=== PATIENT | male | born 1970 | race Caucasian/White ===

== ENCOUNTER → 2016-06-07 | Outpatient (REF) | payer OTHER ==
[~2016-06-07] MED LIST: AMIT50TA PO; ASPI81TA85 PO; CARV6.25 PO; GABA-283 PO; HYDROCODONE PO; LISI40TAB PO; NORC10TA2 PO; OXYC30TA72 PO; OXYC30TA84 PO; PRED20TA PO; PREG50CA PO; ROXI1TAB2 PO; SENO8.6T10 PO; SPIR50TA2 PO; TRAM50TA2 PO; ZANA4CAP PO
== END ==
LOC: M LAB REF 16:39
PROVIDERS: ATTEND Physician Assistant
DX: J06.9 Acute upper respiratory infection, unspecified (principal)

== ENCOUNTER 2016-09-15 18:33 | Emergency (ER) | payer OTHER ==
[~2016-09-15] VITALS: Ht 185.4 cm; Wt 148.2 kg
[2016-09-15] MEDS ORDERED: LISI40TAB PO (18:48)
[2016-09-15] MEDS ORDERED: MORPHINE 10 MG/ML 1ML VIAL IM ONE (20:30)
[2016-09-15] MEDS ORDERED: fentaNYL 100 MCG/2 ML INJECTION (J3010) IV ONE (22:15)
[2016-09-15] MEDS ORDERED: traMADol 50 MG TAB PO ONE (22:30)
--- NOTE | 2016-09-15 22:40 | REPUSA ---
Clinical history: Pain. Findings: 5 views of the right knee were obtained. The osseous structures are intact, without evidenc e of fracture or dislocation. The soft tissues are within normal limits. Impression: No acute findings.
--- NOTE | 2016-09-15 22:40 | REPUSA ---
Clinical history: Pain. Findings: 4 views of the right tibia and fibula were obtained. The osseous structures are intact, wit hout evidence of fracture or dislocation. The soft tissues are within normal limits. Impression: No acute findings.
[2016-09-15] MEDS ORDERED: traMADol 50 MG TAB (BULK 4 TAB ED) PO ONE (23:00)
[2016-09-15] MEDS ORDERED: SPIRONOLACTONE 50 MG TAB PO ONE (23:15)
[2016-09-15] MEDS ORDERED: CARVedilol 12.5 MG TAB PO ONE (23:15)
[2016-09-15] MEDS ORDERED: LABETALOL HCL 100 MG/20 ML VIAL IV STA (23:17)
[2016-09-16] VITALS: BP 164/98
[2016-09-16] MEDS ORDERED: TRAM50TA2 PO (00:11)
== END 2016-09-16 00:15 | disposition home or self-care (01) ==
LOC: M ED 19:35
DX: M23.91 Unspecified internal derangement of right knee (principal); I10 Essential (primary) hypertension; Z79.899 Other long term (current) drug therapy; Z88.0 Allergy status to penicillin; Z91.030 Bee allergy status
CPT/HCPCS: 73564; 73590; 96372; 96374; 96375; 99284; J3010

== ENCOUNTER 2016-11-18 10:45 | Emergency (ER) | payer OTHER ==
[~2016-11-18] VITALS: Ht 185.4 cm; Wt 165.4 kg
[~2016-11-18 10:45] MED LIST changes: -NORC10TA2 PO; +NORC10TA21 PO
[2016-11-18] MEDS ORDERED: AMLO10TA2 PO ×2 (10:58→12:42)
[2016-11-18] MEDS ORDERED: SPIR25TA2 PO ×2 (12:08→12:42)
[2016-11-18 12:10] LABS: MEAN CORPUSCULAR HEMOGLOBIN 29.6 pg (27.0-33.0); MEAN CORPUSCULAR VOLUME 84.7 fl (80.0-96.0); RED CELL DISTRIBUTION WIDTH 14.2 % (11.5-14.5); WHITE BLOOD COUNT 6.9 K/mm3 (4.0-10.0)
[2016-11-18 12:26] LABS: ANION GAP 9 MEQ/L (8-16); BLOOD UREA NITROGEN 17 MG/DL (7-18); CALCIUM LEVEL 8.5 MG/DL (8.5-10.1); CARBON DIOXIDE LEVEL 30 MEQ/L (21-32); CHLORIDE LEVEL 104 MEQ/L (98-107); GLOMERULAR FILTRATION RATE > 60.0 (>60); GLUCOSE, FASTING 173 MG/DL (70-105); MAGNESIUM LEVEL 2.3 MG/DL (1.8-2.4); POTASSIUM SERUM 3.1 MEQ/L (3.5-5.1); SODIUM LEVEL 143 MEQ/L (136-145)
[2016-11-18 12:27] LABS: EOSINOPHILS 1 % (0-5)
[2016-11-18] MEDS ORDERED: POTASSIUM CHLORIDE 10 MEQ SR TABLET PO ONE (12:45)
[2016-11-18 12:49] VITALS: BP 173/86
--- NOTE | 2016-11-19 08:12 | ECGEPIP ---
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
== END 2016-11-18 13:06 | disposition home or self-care (01) ==
LOC: M ED 10:45
DX: I10 Essential (primary) hypertension (principal); F43.12 Post-traumatic stress disorder, chronic; J45.909 Unspecified asthma, uncomplicated

== ENCOUNTER → 2017-03-25 | Outpatient (CLI) | payer OTHER ==
[~2017-03-25] MED LIST changes: +AMLO10TA2 PO; +SPIR25TA2 PO
--- NOTE | 2017-03-25 10:02 | REP ---
Clinical: Trauma. Technique: Frontal view of the chest with multiple views of the of the right hemithorax. Findings: Frontal view of the chest demonstrates no acute cardiopulmonary process. Multiple views of the right hemithorax demonstrates no obvious acute rib fracture or pathology. Impression: Normal right rib series Signed by Ken Johnson MD 03/25/2017 09:53 A
== END ==
LOC: M WUC 09:29
PROVIDERS: ATTEND Physician Assistant
DX: S20.211A Contusion of right front wall of thorax, initial encounter (principal); X58.XXXA Exposure to other specified factors, initial encounter; Y92.89 Other specified places as the place of occurrence of the external cause; Y93.89 Activity, other specified; Y99.8 Other external cause status

== ENCOUNTER → 2017-05-03 | Outpatient (CLI) | payer OTHER | LOC: M WUC 18:37 | DX: M25.562 Pain in left knee (principal); M79.662 Pain in left lower leg; M17.12 Unilateral primary osteoarthritis, left knee; M25.762 Osteophyte, left knee | CPT/HCPCS: 73564 ==

== ENCOUNTER → 2017-05-29 | Outpatient (CLI) | payer OTHER | LOC: M RAD 17:03 | DX: S83.412A Sprain of medial collateral ligament of left knee, initial encounter (principal); M71.22 Synovial cyst of popliteal space [Baker], left knee; X58.XXXA Exposure to other specified factors, initial encounter; Y92.9 Unspecified place or not applicable | CPT/HCPCS: 73721 ==

== ENCOUNTER 2017-11-25 14:56 | Emergency (ER) | payer OTHER ==
[2017-11-25] MEDS: NS 1,000 ML IV (15:22)
[2017-11-25] MEDS: KETOROLAC 30 MG/ML VIAL (J1885) IV (15:22)
[2017-11-25 15:27] LABS: BASO # 0.1 10^3/uL (0.0-0.2); BASO % 0.5 % (0.0-1.0); EOS # 0.2 10^3/uL (0.0-0.50); EOS % 1.9 % (0.0-3.0); HEMATOCRIT 51.5 % (42.0-52.0); HEMOGLOBIN 17.8 g/dl (13.5-17.5); IMMATURE GRANULOCYTE % 0.5 % (0-3.0); LYMPH # 2.3 10^3/uL (1.5-4.5); MEAN CORPUSCULAR HEMOGLOBIN 28.5 pg (27.0-33.0); MEAN CORPUSCULAR HGB CONC 34.6 g/dl (32.0-36.5); MEAN CORPUSCULAR VOLUME 82.5 fl (80.0-96.0); MONO # 0.8 10^3/uL (0.0-0.8); MONO % 6.9 % (0.0-5.0); NEUTROPHILS # 7.5 10^3/uL (1.8-7.7); NEUTROPHILS % 69.2 % (36.0-66.0); PLATELET COUNT, AUTOMATED 173 10^3/uL (150-450); RED BLOOD COUNT 6.24 10^6/uL (4.30-6.10); RED CELL DISTRIBUTION WIDTH 14.2 % (11.5-14.5); WHITE BLOOD COUNT 10.8 10^3/uL (4.0-10.0)
[2017-11-25] MEDS: TAMSULOSIN 0.4 MG CAP PO (15:32)
[2017-11-25] MEDS: MORPHINE 4 MG/ML 1ML VIAL/SYRINGE (J2270) IV (15:33)
[2017-11-25 15:54] LABS: ALBUMIN 3.8 GM/DL (3.2-5.2); ALBUMIN/GLOBULIN RATIO 1.06 (1.00-1.93); ALKALINE PHOSPHATASE 97 U/L (45-117); ALT/SGPT 68 U/L (12-78); ANION GAP 7 MEQ/L (8-16); AST/SGOT 65 U/L (7-37); BILIRUBIN,TOTAL 1.1 MG/DL (0.2-1.0); BLOOD UREA NITROGEN 14 MG/DL (7-18); CALCIUM LEVEL 8.8 MG/DL (8.5-10.1); CARBON DIOXIDE LEVEL 33 MEQ/L (21-32); CHLORIDE LEVEL 103 MEQ/L (98-107); CREATININE FOR GFR 1.35 MG/DL (0.70-1.30); GLOMERULAR FILTRATION RATE > 60.0 (>60); GLUCOSE, FASTING 198 MG/DL (70-100); POTASSIUM SERUM 3.6 MEQ/L (3.5-5.1); SODIUM LEVEL 143 MEQ/L (136-145); TOTAL PROTEIN 7.4 GM/DL (6.4-8.2)
[2017-11-25] MEDS: fentaNYL 100 MCG/2 ML INJECTION (J3010) IV (15:58)
[2017-11-25] MEDS ORDERED: NS 1,000 ML IV (16:30)
[2017-11-25 16:54] LABS: KETONE, URINE AUTO RFX TRACE mg/dL (NEGATIVE); LEUKOCYTE ESTERASE UR AUTO RFX NEGATIVE (NEGATIVE); MUCUS, URINE RFX LARGE (NEGATIVE); NITRITE, URINE AUTO RFX NEGATIVE (NEGATIVE); RBC, URINE AUTO RFX 1 /HPF (0-3); SPECIFIC GRAVITY UR AUTO RFX 1.027 (1.002-1.035); SQUAM EPITHELIAL CELL UR AURFX 0 /HPF (0-6); WBC, URINE AUTO RFX 3 /HPF (0-3)
== END 2017-11-25 16:48 | disposition home or self-care (01) ==
LOC: M ED 14:56
DX: N20.1 Calculus of ureter (principal); I10 Essential (primary) hypertension; Z87.442 Personal history of urinary calculi; G47.33 Obstructive sleep apnea (adult) (pediatric); Z87.820 Personal history of traumatic brain injury; Z88.0 Allergy status to penicillin; Z91.030 Bee allergy status; Z79.899 Other long term (current) drug therapy
CPT/HCPCS: J2270

== ENCOUNTER 2017-11-28 06:08 | Emergency (ER) | payer OTHER ==
[2017-11-28] MEDS: MORPHINE 4 MG/ML 1ML VIAL/SYRINGE (J2270) IV (06:30)
[2017-11-28 06:52] LABS: BASO # 0.1 10^3/uL (0.0-0.2); BASO % 0.6 % (0.0-1.0); EOS # 0.1 10^3/uL (0.0-0.50); EOS % 1.2 % (0.0-3.0); HEMATOCRIT 52.8 % (42.0-52.0); HEMOGLOBIN 18.7 g/dl (13.5-17.5); IMMATURE GRANULOCYTE % 0.2 % (0-3.0); LYMPH # 1.9 10^3/uL (1.5-4.5); LYMPH % 23.7 % (24.0-44.0); MEAN CORPUSCULAR HEMOGLOBIN 28.6 pg (27.0-33.0); MEAN CORPUSCULAR HGB CONC 35.4 g/dl (32.0-36.5); MEAN CORPUSCULAR VOLUME 80.9 fl (80.0-96.0); MONO # 0.5 10^3/uL (0.0-0.8); MONO % 5.9 % (0.0-5.0); NEUTROPHILS # 5.6 10^3/uL (1.8-7.7); NEUTROPHILS % 68.4 % (36.0-66.0); PLATELET COUNT, AUTOMATED 206 10^3/uL (150-450); RED BLOOD COUNT 6.53 10^6/uL (4.30-6.10); RED CELL DISTRIBUTION WIDTH 14.8 % (11.5-14.5); WHITE BLOOD COUNT 8.1 10^3/uL (4.0-10.0)
[2017-11-28] MEDS: ONDANSETRON 4MG/2ML VIAL (J2405) IV (06:59)
[2017-11-28] MEDS: NS 1,000 ML IV ×2 (06:59→09:30)
[2017-11-28] MEDS: amLODIPine 5 MG TAB PO (08:03)
[2017-11-28] MEDS: fentaNYL 100 MCG/2 ML INJECTION (J3010) IV ×2 (08:04→09:44)
[2017-11-28] MEDS ORDERED: ISOVUE-370 76% 100ML VIAL (Q9967) As Ordered (08:05)
[2017-11-28 08:24] LABS: ANION GAP 9 MEQ/L (8-16); BLOOD UREA NITROGEN 11 MG/DL (7-18); CALCIUM LEVEL 8.1 MG/DL (8.5-10.1); CARBON DIOXIDE LEVEL 27 MEQ/L (21-32); CHLORIDE LEVEL 105 MEQ/L (98-107); CK-MB VALUE MASS < 1.0 NG/ML (<3.6); CPK CREATINE PHOSPHOKINASE 143 U/L (39-308); CREATININE FOR GFR 1.02 MG/DL (0.70-1.30); GLOMERULAR FILTRATION RATE > 60.0 (>60); GLUCOSE, FASTING 187 MG/DL (70-100); MB/CK RELATIVE INDEX 0.69 (< OR =4); SODIUM LEVEL 141 MEQ/L (136-145); TROPONIN I 0.03 NG/ML (< 0.10)
[2017-11-28 08:28] LABS: POTASSIUM SERUM 2.5 MEQ/L (3.5-5.1)
[2017-11-28] MEDS: POTASSIUM CHLORIDE 10 MEQ SR TABLET PO (09:41)
[2017-11-28] MEDS: KCL 10MEQ/100ML SWI (KRUN) 10 MEQ in APPROPRIATE DILUENT 1 EA IV ×2 (09:42→11:06)
[2017-11-28 10:48] LABS: APPEARANCE, URINE CLEAR (CLEAR); BACTERIA, URINE AUTO NEGATIVE (NEGATIVE); BILIRUBIN, URINE AUTO NEGATIVE (NEGATIVE); BLOOD, URINE BLOOD NEGATIVE (NEGATIVE); COLOR, URINE YELLOW (YELLOW); GLUCOSE, URINE (UA) AUTO NEGATIVE (NEGATIVE); KETONE, URINE AUTO TRACE mg/dL (NEGATIVE); LEUKOCYTE ESTERASE, URINE AUTO NEGATIVE (NEGATIVE); NITRITE, URINE AUTO NEGATIVE (NEGATIVE); PROTEIN, URINE AUTO NEGATIVE (NEGATIVE); RBC, URINE AUTO 2 /HPF (0-3); SPECIFIC GRAVITY URINE AUTO 1.034 (1.002-1.035); SQUAMOUS EPITHELIAL CELL UR AU 0 /HPF (0-6); UROBILINOGEN, URINE AUTO 0.2 mg/dL (0.0-2.0); WBC, URINE AUTO 2 /HPF (0-3)
[2017-11-28] MEDS: diazePAM 10 MG TAB PO (12:58)
[2017-11-28] MEDS: HYDROMORPHONE HCL 0.5 MG/ 0.5 ML SYRINGE (J1170 PER 1) IV (13:00)
== END 2017-11-28 14:28 | disposition home or self-care (01) ==
LOC: M ED 06:08
DX: M54.5 Low back pain (principal); E87.6 Hypokalemia; K59.00 Constipation, unspecified; I10 Essential (primary) hypertension; E78.5 Hyperlipidemia, unspecified; Z79.899 Other long term (current) drug therapy; Z79.84 Long term (current) use of oral hypoglycemic drugs; Z88.0 Allergy status to penicillin; Z91.030 Bee allergy status; Z87.891 Personal history of nicotine dependence
CPT/HCPCS: J2270

== ENCOUNTER → 2017-12-19 | Outpatient (REF) | payer OTHER ==
[2017-12-19 19:04] LABS: APPEARANCE, URINE HAZY (CLEAR); BACTERIA, URINE AUTO NEGATIVE (NEGATIVE); BILIRUBIN, URINE AUTO NEGATIVE (NEGATIVE); BLOOD, URINE BLOOD NEGATIVE (NEGATIVE); CALCIUM OXALATE CRYSTALS SMALL; COLOR, URINE YELLOW (YELLOW); GLUCOSE, URINE (UA) AUTO NEGATIVE (NEGATIVE); KETONE, URINE AUTO NEGATIVE (NEGATIVE); LEUKOCYTE ESTERASE, URINE AUTO NEGATIVE (NEGATIVE); MUCUS, URINE SMALL (NEGATIVE); NITRITE, URINE AUTO NEGATIVE (NEGATIVE); PROTEIN, URINE AUTO NEGATIVE (NEGATIVE); RBC, URINE AUTO 0 /HPF (0-3); SPECIFIC GRAVITY URINE AUTO 1.018 (1.002-1.035); SQUAMOUS EPITHELIAL CELL UR AU 0 /HPF (0-6); WBC, URINE AUTO 0 /HPF (0-3)
== END ==
LOC: M SMT 17:22
DX: R35.0 Frequency of micturition (principal)

== ENCOUNTER 2017-12-20 15:52 | Emergency (ER) | payer OTHER ==
[2017-12-20 16:52] LABS: BASO % 0.4 % (0.0-1.0); EOS # 0.2 10^3/uL (0.0-0.50); EOS % 2.4 % (0.0-3.0); HEMATOCRIT 48.1 % (42.0-52.0); HEMOGLOBIN 16.3 g/dl (13.5-17.5); IMMATURE GRANULOCYTE % 0.1 % (0-3.0); LYMPH # 1.8 10^3/uL (1.5-4.5); MEAN CORPUSCULAR HEMOGLOBIN 28.5 pg (27.0-33.0); MEAN CORPUSCULAR HGB CONC 33.9 g/dl (32.0-36.5); MEAN CORPUSCULAR VOLUME 84.2 fl (80.0-96.0); MONO # 0.5 10^3/uL (0.0-0.8); MONO % 6.7 % (0.0-5.0); NEUTROPHILS % 66.4 % (36.0-66.0); PLATELET COUNT, AUTOMATED 166 10^3/uL (150-450); RED BLOOD COUNT 5.71 10^6/uL (4.30-6.10); RED CELL DISTRIBUTION WIDTH 14.1 % (11.5-14.5); WHITE BLOOD COUNT 7.6 10^3/uL (4.0-10.0)
[2017-12-20 17:12] LABS: ANION GAP 8 MEQ/L (8-16); BLOOD UREA NITROGEN 18 MG/DL (7-18); CALCIUM LEVEL 8.8 MG/DL (8.5-10.1); CARBON DIOXIDE LEVEL 31 MEQ/L (21-32); CHLORIDE LEVEL 102 MEQ/L (98-107); CPK CREATINE PHOSPHOKINASE 180 U/L (39-308); CREATININE FOR GFR 1.04 MG/DL (0.70-1.30); GLOMERULAR FILTRATION RATE > 60.0 (>60); GLUCOSE, FASTING 120 MG/DL (70-100); MB/CK RELATIVE INDEX 1.22 (< OR =4); POTASSIUM SERUM 3.2 MEQ/L (3.5-5.1); SODIUM LEVEL 141 MEQ/L (136-145); TROPONIN I 0.03 NG/ML (< 0.10)
[2017-12-20 17:15] LABS: INR 1.06; PROTHROMBIN TIME 13.9 SECONDS (12.1-14.4)
[2017-12-20 17:16] LABS: PARTIAL THROMBOPLASTIN TIME 28.1 SECONDS (25.4-37.6)
[2017-12-20] MEDS: KETOROLAC 30 MG/ML VIAL (J1885) IV (17:23)
[2017-12-20] MEDS: ASPIRIN 325 MG TAB PO (17:23)
[2017-12-20] MEDS ORDERED: ISOVUE-370 76% 100ML VIAL (Q9967) As Ordered (17:39)
[2017-12-20] MEDS: POTASSIUM CHLORIDE 10 MEQ SR TABLET PO (18:09)
[2017-12-20] MEDS: MORPHINE 10 MG/ML 1ML VIAL (J2270) IV (19:09)
[2017-12-20 21:44] LABS: CPK CREATINE PHOSPHOKINASE 164 U/L (39-308); MB/CK RELATIVE INDEX 0.91 (< OR =4); TROPONIN I 0.03 NG/ML (< 0.10)
== END 2017-12-20 22:44 | disposition home or self-care (01) ==
LOC: M ED 15:52
DX: R07.89 Other chest pain (principal); R06.02 Shortness of breath; E11.9 Type 2 diabetes mellitus without complications; I10 Essential (primary) hypertension; N28.1 Cyst of kidney, acquired; Z87.442 Personal history of urinary calculi; Z79.899 Other long term (current) drug therapy; Z79.84 Long term (current) use of oral hypoglycemic drugs; Z88.0 Allergy status to penicillin; Z91.030 Bee allergy status; F17.210 Nicotine dependence, cigarettes, uncomplicated
CPT/HCPCS: Q9967

== ENCOUNTER → 2017-12-20 | Outpatient (CLI) | payer OTHER ==
[2017-12-20 12:44] LABS: HEMATOCRIT 46.9 % (42.0-52.0); HEMOGLOBIN 16.4 g/dl (13.5-17.5); MEAN CORPUSCULAR HEMOGLOBIN 28.5 pg (27.0-33.0); MEAN CORPUSCULAR VOLUME 81.6 fl (80.0-96.0); PLATELET COUNT, AUTOMATED 157 10^3/uL (150-450); RED BLOOD COUNT 5.75 10^6/uL (4.30-6.10); RED CELL DISTRIBUTION WIDTH 13.8 % (11.5-14.5); WHITE BLOOD COUNT 6.9 10^3/uL (4.0-10.0)
[2017-12-20 13:49] LABS: ANION GAP 6 MEQ/L (8-16); BLOOD UREA NITROGEN 17 MG/DL (7-18); CALCIUM LEVEL 8.6 MG/DL (8.5-10.1); CARBON DIOXIDE LEVEL 31 MEQ/L (21-32); CHLORIDE LEVEL 102 MEQ/L (98-107); CREATININE FOR GFR 0.96 MG/DL (0.70-1.30); GLOMERULAR FILTRATION RATE > 60.0 (>60); GLUCOSE, FASTING 164 MG/DL (70-100); POTASSIUM SERUM 3.3 MEQ/L (3.5-5.1); SODIUM LEVEL 139 MEQ/L (136-145)
[2017-12-23 15:36] LABS: METANEPHRINE PLASMA 59 pg/mL (0-62); NORMETANEPHRINE PLASMA 182 pg/mL (0-145)
[2017-12-23 15:36] LABS: ADRENOCORTICOTROPHIC HORMONE 18.8 pg/mL (7.2-63.3)
[2017-12-24 11:11] LABS: ALDOS/RENIN RATIO 28.8 (0.0-30.0); ALDOSTERONE 18.7 ng/dL (0.0-30.0)
== END ==
LOC: M WUC 11:17
DX: D35.02 Benign neoplasm of left adrenal gland (principal)

== ENCOUNTER → 2017-12-24 | Outpatient (REF) | payer OTHER | LOC: M LAB 12:18 | DX: D35.02 Benign neoplasm of left adrenal gland (principal) ==

== ENCOUNTER → 2018-09-27 | Outpatient (CLI) | payer OTHER ==
[~2018-09-27] MED LIST changes: -AMLO10TA2 PO; +AMLO10TA5 PO; +CARV25TA; +FLOM0.4C39 PO; -GABA-283 PO; +GABA-845 PO; +ISOS30TA4; +KEFL500C17 PO; +LISI40TA PO; +LISI40TA52 PO; -LISI40TAB PO; +METF500T4; +NITR0.4S14; -NORC10TA21 PO; +NORC1TAB5 PO; +PERC5TAB12 PO; +SPIR-10 PO; -SPIR25TA2 PO; -SPIR50TA2 PO; +SPIR50TA4 PO; +TRAM50TA2; +VALI5TAB PO
--- NOTE | 2018-09-27 14:05 | REP ---
MRI brain without contrast: History: Personal history of TIA. Comparison CT study of the brain is reviewed from 08/27/2017. Technique: Axial and sagittal imaging planes are utilized for T1 and T2-weighted scans. Sequences include spin-echo, fast spin echo, FLAIR, and diffusion weighted sequences. MRI findings: No bony calvarial lesion is seen. Craniocervical junction and upper cervical cord are normal in appearance. There is no MR evidence of significant paranasal sinus disease. No intraorbital lesion is seen. The deep facial and skull base soft tissues are unremarkable and symmetric. Diffusion weighted scans show no evidence to suggest acute ischemia. There is no evidence of intracranial hemorrhage. Lateral, third, and fourth ventricles are normal in size and position. No significant white matter lesion is appreciated. Impression: Negative MRI study of the brain. Electronically Signed by Waqar Bragg MD 09/27/2018 02:27 P
== END ==
LOC: M RAD 07:34
PROVIDERS: ATTEND Psychiatry & Neurology Neurology
DX: Z86.73 Personal history of transient ischemic attack (TIA), and cerebral infarction without residual deficits (principal); G43.109 Migraine with aura, not intractable, without status migrainosus; G43.711 Chronic migraine without aura, intractable, with status migrainosus

== ENCOUNTER 2018-10-22 11:03 | Emergency (ER) | payer OTHER ==
[~2018-10-22] VITALS: Ht 185.4 cm; Wt 156.5 kg
[2018-10-22] MEDS ORDERED: ASPI81TA85 PO (11:16)
[2018-10-22] MEDS ORDERED: ATOR80TA59 PO (11:16)
[2018-10-22] MEDS ORDERED: NS 1,000 ML IV SCH (12:11)
[2018-10-22 12:12] LABS: BASO % 0.4 % (0.0-1.0); EOS # 0.2 10^3/uL (0.0-0.50); EOS % 2.4 % (0.0-3.0); HEMATOCRIT 48.5 % (42.0-52.0); HEMOGLOBIN 16.8 g/dl (13.5-17.5); LYMPH # 1.4 10^3/uL (1.5-4.5); LYMPH % 20.6 % (24.0-44.0); MEAN CORPUSCULAR HEMOGLOBIN 30.5 pg (27.0-33.0); MEAN CORPUSCULAR HGB CONC 34.6 g/dl (32.0-36.5); MEAN CORPUSCULAR VOLUME 88.2 fl (80.0-96.0); MONO # 0.4 10^3/uL (0.0-0.8); MONO % 6.1 % (0.0-5.0); NEUTROPHILS # 4.7 10^3/uL (1.8-7.7); NEUTROPHILS % 70.1 % (36.0-66.0); PLATELET COUNT, AUTOMATED 151 10^3/uL (150-450); WHITE BLOOD COUNT 6.8 10^3/uL (4.0-10.0)
[2018-10-22] MEDS ORDERED: ASPIRIN 81 MG CHEW TABLET PO ONE (12:15)
[2018-10-22] MEDS ORDERED: GI COCKTAIL 50ML BTL(HYOSCYAMINE/MAALOX/LIDOCAINE VISCOUS)(1:3:1) PO ONE (12:15)
[2018-10-22 12:28] LABS: INR 1.09; PROTHROMBIN TIME 13.8 SECONDS (11.8-14.0)
[2018-10-22] MEDS: NITROGLYCERIN 0.4 MG SUBL TABLET SL PRN ×3 (12:42→14:15)
[2018-10-22 12:48] LABS: ALBUMIN 3.6 GM/DL (3.2-5.2); ALT/SGPT 38 U/L (12-78); BILIRUBIN,DIRECT 0.2 MG/DL (0.0-0.2); BILIRUBIN,TOTAL 0.7 MG/DL (0.2-1.0); BLOOD UREA NITROGEN 18 MG/DL (7-18); CALCIUM LEVEL 8.7 MG/DL (8.5-10.1); CARBON DIOXIDE LEVEL 30 MEQ/L (21-32); CHLORIDE LEVEL 106 MEQ/L (98-107); CK-MB VALUE MASS 1.2 NG/ML (<3.6); CPK CREATINE PHOSPHOKINASE 127 U/L (39-308); CREATININE FOR GFR 1.17 MG/DL (0.70-1.30); FREE T4 0.92 NG/DL (0.76-1.46); GLOMERULAR FILTRATION RATE > 60.0 (>60); GLUCOSE, FASTING 115 MG/DL (70-100); LIPASE 127 U/L (73-393); MB/CK RELATIVE INDEX 0.94 (< OR =4); NT-PRO BNP 75 PG/ML (<125); SODIUM LEVEL 141 MEQ/L (136-145); TOTAL PROTEIN 6.6 GM/DL (6.4-8.2); TROPONIN I < 0.02 NG/ML (< 0.10)
--- NOTE | 2018-10-22 13:11 | REP ---
SINGLE-VIEW CHEST: Single portable view of the chest is performed. There is poor ventilation. There is mild bibasilar atelectatic change. The cardiomediastinal silhouette is magnified. No consolidating infiltrate is seen. IMPRESSION: Poor ventilation with mild atelectatic change. No consolidating infiltrate. Electronically Signed by Miguel Petty MD 10/23/2018 03:55 P
[2018-10-22] MEDS ORDERED: METOCLOPRAMIDE INJ 10MG/2ML VIAL (J2765) IV ONE (13:15)
[2018-10-22 16:45] VITALS: BP 127/67
--- NOTE | 2018-10-22 17:07 | REP ---
REASON FOR EXAM: Headache. COMPARISON: 08/27/2017. TECHNIQUE: 4.5 mm contiguous transaxial sections were obtained from the skull base to the cerebral convexities with thin cuts through the posterior fossa without the administration of intravenous contrast. FINDINGS: The ventricles and sulci are consistent with the patient's age. There are no extra-axial fluid collections. There is no mass effect. The deep cerebral white matter is consistent with the patient's age. The orbital and petrous structures, cerebellopontine angles, and posterior fossa are unremarkable. The sella turcica, cavernous, and paracavernous structures are essentially unremarkable. The visualized portions of the paranasal sinuses and mastoid air cells are clear. Images of the skull base show no gross abnormality. IMPRESSION: Essentially unremarkable CT examination of the brain. No change from the prior exam. Electronically Signed by Darian Lopez DO 10/22/2018 07:40 P
[2018-10-22 17:53] LABS: CK-MB VALUE MASS 1.2 NG/ML (<3.6); CPK CREATINE PHOSPHOKINASE 208 U/L (39-308); MB/CK RELATIVE INDEX 0.58 (< OR =4); TROPONIN I < 0.02 NG/ML (< 0.10)
--- NOTE | 2018-10-22 19:55 | ECGEPIP ---
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 : 1970 Requested By: Shay Kaur Order Number: [id number] Reading MD: Beny Wright Measurements Intervals [place] Rate: 72 P: [place]: 164 QRS: 4 QRSD: 106 T: 17 QT: 393 QTc: 431 Interpretive Statements SINUS RHYTHM MODERATE INTRAVENTRICULAR CONDUCTION DELAY NSTTW ABNORMALITIES SIMILAR TO 12/20/17 Electronically Signed on 10-22-2018 19:55:21 EDT by Beny Wright
--- NOTE | 2018-10-22 20:13 | ECGEPIP ---
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
== END 2018-10-22 18:19 | disposition home or self-care (01) ==
LOC: M ED 11:03
DX: R07.89 Other chest pain (principal); E11.9 Type 2 diabetes mellitus without complications; I10 Essential (primary) hypertension; E78.5 Hyperlipidemia, unspecified; Z88.0 Allergy status to penicillin; Z91.030 Bee allergy status; Z79.899 Other long term (current) drug therapy; Z79.84 Long term (current) use of oral hypoglycemic drugs; Z79.82 Long term (current) use of aspirin
CPT/HCPCS: 70450; 71045; 80048; 80076; 82550; 82553; 83690; 83880; 84439; 84443; 84484; 85025; 85610; 93005; 93041; 94760; 96374; 99285; J2765

== ENCOUNTER 2018-12-25 14:54 | Emergency (ER) | payer OTHER ==
[~2018-12-25] VITALS: Ht 185.4 cm; Wt 134.6 kg
[~2018-12-25 14:54] MED LIST changes: +ATOR80TA59 PO; +METF-791 PO; -METF500T4
[2018-12-25] MEDS ORDERED: CARV25TA PO (15:05)
[2018-12-25] MEDS ORDERED: TRAM50TA2 PO (15:33)
[2018-12-25 17:56] LABS: HEMATOCRIT 51.8 % (42.0-52.0); MEAN CORPUSCULAR HEMOGLOBIN 30.2 pg (27.0-33.0); MEAN CORPUSCULAR HGB CONC 34.7 g/dl (32.0-36.5); MEAN CORPUSCULAR VOLUME 86.8 fl (80.0-96.0); PLATELET COUNT, AUTOMATED 140 10^3/uL (150-450); RED BLOOD COUNT 5.97 10^6/uL (4.30-6.10); WHITE BLOOD COUNT 3.9 10^3/uL (4.0-10.0)
[2018-12-25] MEDS: HYDROMORPHONE HCL 0.5 MG/ 0.5 ML SYRINGE (J1170 PER 1) IV PRN ×2 (17:58→18:46)
--- NOTE | 2018-12-25 18:16 | REPVR ---
PROCEDURE INFORMATION: Exam: CT Head Without Contrast Exam date and time: 12/25/2018 5:35 PM Clinical history: 48 years old, male; Pain; Headache not specified; Additional info: Pain, parasthesia TECHNIQUE: Imaging protocol: Computed tomography of the head without contrast. Radiation optimization: All CT scans at this facility use at least one of these dose optimization techniques: automated exposure control; mA and/or kV adjustment per patient size (includes targeted exams where dose is matched to clinical indication); or iterative reconstruction. COMPARISON: CT Head without contrast 10/22/2018 2:42 PM FINDINGS: Brain: No hemorrhage. Unremarkable white matter for the patient's age. No mass effect. No evolving territorial infarct. Ventricles: Stable. No ventriculomegaly. Bones/joints: Unremarkable. No acute fracture. Sinuses: Visualized sinuses are unremarkable. No fluid levels. Mastoid air cells: Visualized mastoid air cells are well aerated. Soft tissues: Unremarkable. IMPRESSION: No acute intracranial abnormality seen. Electronically signed by: Lorna Marino On 12/25/2018 18:16:45 PM
[2018-12-25 18:17] LABS: INR 1.07; PARTIAL THROMBOPLASTIN TIME 27.7 SECONDS (25.0-38.4); PROTHROMBIN TIME 13.6 SECONDS (11.8-14.0)
--- NOTE | 2018-12-25 18:26 | REPVR ---
PROCEDURE INFORMATION: Exam: CT Cervical Spine Without Contrast Exam date and time: 12/25/2018 5:35 PM Clinical history: 48 years old, male; Numbness; Additional info: Pain, parasthesia TECHNIQUE: Imaging protocol: Computed tomography images of the cervical spine without contrast. Radiation optimization: All CT scans at this facility use at least one of these dose optimization techniques: automated exposure control; mA and/or kV adjustment per patient size (includes targeted exams where dose is matched to clinical indication); or iterative reconstruction. COMPARISON: No relevant prior studies available. FINDINGS: Vertebrae: Straightening of the cervical lordosis may be positional or due to muscle spasm. No acute fracture seen. A focal, sclerotic lesion in the left C1 lateral mass may represent a bone island. Moderate posterior disc height loss with dorsal bridging osteophytosis at C7-T1. Mild posterior disc height loss with endplate osteophytosis at C2-3 and C3-4. Discs/Spinal canal/Neural foramina: C2-C3: Small central disc osteophyte complex does not contribute to central spinal canal stenosis. The neural foramina are patent. C3-C4: Small central disc osteophyte complex does not contribute to central spinal canal stenosis. The neural foramina are patent. C4-C5: Unremarkable. No stenoses. C5-C6: Limited visualization of the spinal canal due to patient body habitus which limits beam penetration. The neural foramina are patent. C6-C7: Limited visualization of the spinal canal due to patient body habitus which limits beam penetration. The neural foramina are patent. C7-T1: Limited visualization of the spinal canal due to patient body habitus which limits beam penetration. Central disc osteophyte complex, potentially a component of calcified caudally migrating disc extrusion versus calcified thickened posterior longitudinal ligament. No high-grade central spinal canal stenosis. Mild uncovertebral and facet arthropathy without contribution to significant foraminal stenoses. Soft tissues: Unremarkable. Lungs: Lung apices are normal. Vasculature: Mild proximal left ICA calcified atherosclerotic plaque. IMPRESSION: Mild degenerative changes. No high-grade stenoses identified. Electronically signed by: Lorna Marino On 12/25/2018 18:25:49 PM
[2018-12-25 18:27] LABS: ERYTHROCYTE SEDIMENTATION RATE 1 mm/hr (0-15)
[2018-12-25 18:29] LABS: ALBUMIN 3.5 GM/DL (3.2-5.2); ALT/SGPT 44 U/L (12-78); BILIRUBIN,DIRECT 0.2 MG/DL (0.0-0.2); BILIRUBIN,TOTAL 0.9 MG/DL (0.2-1.0); C REACTIVE PROTEIN QUANTITATIV 4.46 MG/DL (0.00-0.30); CK-MB VALUE MASS < 1.0 NG/ML (<3.6); CPK CREATINE PHOSPHOKINASE 128 U/L (39-308); MB/CK RELATIVE INDEX 0.78 (< OR =4); TOTAL PROTEIN 6.7 GM/DL (6.4-8.2); TROPONIN I < 0.02 NG/ML (< 0.10)
[2018-12-25] MEDS ORDERED: KETOROLAC 30 MG/ML VIAL (J1885) IV ONE (19:30)
[2018-12-25] MEDS ORDERED: HYDROMORPHONE HCL 0.5 MG/ 0.5 ML SYRINGE (J1170 PER 1) IV PRN ×2 (19:30→21:15)
--- NOTE | 2018-12-25 21:03 | REPVR ---
PROCEDURE INFORMATION: Exam: MR Cervical Spine Without Contrast Exam date and time: 12/25/2018 6:38 PM Clinical history: 48 years old, male; Numbness; Additional info: Parasthesia TECHNIQUE: Imaging protocol: Multiplanar magnetic resonance images of the cervical spine without contrast. COMPARISON: CT Spine,cervical w/o contrast 12/25/2018 5:33 PM FINDINGS: Vertebrae: Straightening of the cervical lordosis may be positional or due to muscle spasm. No acute fracture seen. Spinal cord: Normal signal, as visualized. No cord compression. Mild disc desiccation. No high-grade disc height loss. C2-C3: Small central disc protrusion does not contribute to central spinal canal stenosis. The neural foramina are patent. C3-C4: Small central disc protrusion does not contribute to central spinal canal stenosis. The neural foramina are patent. C4-C5: Small central disc protrusion does not contribute to central spinal canal stenosis. The neural foramina are patent. C5-C6: The central spinal canal is patent. Mild uncovertebral and facet arthropathy without contribution to foraminal stenoses. C6-C7: Small central disc protrusion does not contribute to central spinal canal stenosis. The neural foramina are patent. C7-T1: Mild uncovertebral and facet arthropathy without contribution to foraminal stenoses 3 mm caudally migrating disc extrusion versus posterior longitudinal ligament thickening which does not contribute to central spinal canal stenosis. Vertebral arteries: Expected flow voids in the vertebral arteries. Soft tissues: Unremarkable. IMPRESSION: 1. Images are motion degraded. 2. Mild degenerative changes without stenoses. Electronically signed by: Lorna Marino On 12/25/2018 21:02:47 PM
--- NOTE | 2018-12-25 21:09 | REPVR ---
PROCEDURE INFORMATION: Exam: MR Head Without Contrast Exam date and time: 12/25/2018 6:38 PM Clinical history: 48 years old, male; Weakness, extremity; Bilateral; Additional info: Parasthesia TECHNIQUE: Imaging protocol: MR of the head without contrast. COMPARISON: MRI-Brain without Contrast 09/27/2018 8:48 AM FINDINGS: Brain: No acute infarct identified on the diffusion weighted imaging. No parenchymal hemorrhage. No evidence of brain parenchymal edema or intracranial mass effect. No significant white matter disease for the patient's age. A few punctate foci of increased signal intensity in the subcortical white matter most likely representing trace chronic small vessel ischemic change. 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 Ventricles: Stable. No ventriculomegaly. Bones/joints: Unremarkable. Soft tissues: Unremarkable. Sinuses: Retention cyst or polyp in the left maxillary sinus. Trace ethmoid mucosal thickening. Mastoid air cells: Normal as visualized. No mastoid effusion. Orbits: Unremarkable. IMPRESSION: No evidence of acute infarct. Electronically signed by: Lorna Marino On 12/25/2018 21:09:16 PM
[2018-12-25] MEDS ORDERED: predniSONE 20 MG TAB PO ONE (22:30)
[2018-12-25] MEDS ORDERED: OXYCODONE/APAP 5MG/325MG(BULK FOR ED) 1 TABLET PO ONE (22:30)
[2018-12-25] MEDS ORDERED: OXYC1TAB23 PO ×2 (22:31→22:32)
[2018-12-25] MEDS ORDERED: MEDR1TAB PO (22:31)
[2018-12-25 22:35] VITALS: BP 146/76
--- NOTE | 2018-12-26 20:36 | ECGEPIP ---
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
== END 2018-12-25 22:50 | disposition home or self-care (01) ==
LOC: M ED 14:54
DX: M54.2 Cervicalgia (principal); M54.10 Radiculopathy, site unspecified; E11.9 Type 2 diabetes mellitus without complications; I10 Essential (primary) hypertension; Z87.820 Personal history of traumatic brain injury; Z79.899 Other long term (current) drug therapy; Z79.84 Long term (current) use of oral hypoglycemic drugs; Z79.82 Long term (current) use of aspirin; Z88.0 Allergy status to penicillin; Z91.030 Bee allergy status; F17.220 Nicotine dependence, chewing tobacco, uncomplicated
CPT/HCPCS: 70450; 70551; 72125; 72141; 80047; 80076; 82550; 82553; 84484; 85027; 85610; 85652; 85730; 86140; 93005; 96374; 96375; 96376; 99285; J1170; J1885

== ENCOUNTER 2020-01-05 09:37 | Emergency (ER) | payer OTHER ==
[~2020-01-05] VITALS: Ht 185.4 cm; Wt 158.5 kg
[~2020-01-05 09:37] MED LIST changes: -AMLO10TA5 PO; +AMLO1TAB25 PO; -ASPI81TA85 PO; +ASPI81TA86 PO; +CARV25TA PO; +MEDR1TAB PO; -METF-791 PO; +METF-838 PO; +OXYC1TAB23 PO; +OXYC30TA PO; -OXYC30TA84 PO
[2020-01-05] MEDS ORDERED: ROSU20TA5 PO (10:07)
--- NOTE | 2020-01-05 10:19 | REPVR ---
PROCEDURE INFORMATION: Exam: XR Right Ankle Exam date and time: 01/05/2020 9:56 AM Age: 49 years old Clinical indication: Injury or trauma; Fall; Sprain or strain; Ankle; Right; Additional info: Injury, unable to bearweight TECHNIQUE: Imaging protocol: XR Right ankle. Views: 3 or more views. COMPARISON: SR - Tibia, Fibula lower leg 09/15/2016 10:14:17 PM FINDINGS: Bones/joints: Bones are intact and the ankle mortise is preserved. No acute fracture or dislocation. There is an old corticated osseous density adjacent to the lateral aspect of the talus which appears unchanged. Mild calcaneal spurring. Soft tissues: Soft tissues are unremarkable. IMPRESSION: No acute bony abnormality is identified. Electronically signed by: Ken Russo On 01/05/2020 10:18:47 AM
[2020-01-05 10:58] VITALS: BP 167/96
== END 2020-01-05 10:59 | disposition home or self-care (01) ==
LOC: M ED 09:37
DX: S93.431A Sprain of tibiofibular ligament of right ankle, initial encounter (principal); E11.9 Type 2 diabetes mellitus without complications; I10 Essential (primary) hypertension; Z79.82 Long term (current) use of aspirin; Z79.84 Long term (current) use of oral hypoglycemic drugs; Z79.899 Other long term (current) drug therapy; Z91.030 Bee allergy status; Y92.9 Unspecified place or not applicable; Y99.9 Unspecified external cause status; Y93.9 Activity, unspecified

== ENCOUNTER → 2020-03-03 | Outpatient (REF) | payer OTHER ==
[~2020-03-03] MED LIST changes: +ROSU20TA5 PO
[2020-03-03 14:07] LABS: AMORPHOUS SEDIMENT LARGE (NEGATIVE); APPEARANCE, URINE TURBID (CLEAR); BACTERIA, URINE AUTO NEGATIVE (NEGATIVE); BILIRUBIN, URINE AUTO NEGATIVE (NEGATIVE); BLOOD, URINE BLOOD NEGATIVE (NEGATIVE); COLOR, URINE YELLOW (YELLOW); GLUCOSE, URINE (UA) AUTO NEGATIVE (NEGATIVE); KETONE, URINE AUTO NEGATIVE (NEGATIVE); LEUKOCYTE ESTERASE, URINE AUTO NEGATIVE (NEGATIVE); MUCUS, URINE SMALL (NEGATIVE); NITRITE, URINE AUTO NEGATIVE (NEGATIVE); PROTEIN, URINE AUTO 1+ mg/dL (NEGATIVE); RBC, URINE AUTO 0 /HPF (0-3); SPECIFIC GRAVITY URINE AUTO 1.027 (1.002-1.035); SQUAMOUS EPITHELIAL CELL UR AU 0 /HPF (0-6); UROBILINOGEN, URINE AUTO 0.2 mg/dL (0.0-2.0); WBC, URINE AUTO 0 /HPF (0-3)
== END ==
LOC: M SMT 13:31
PROVIDERS: ATTEND Nurse Practitioner Family
DX: N50.819 Testicular pain, unspecified (principal)
CPT/HCPCS: 81001; 87086; 87490; 87590; G0463

== ENCOUNTER → 2020-03-12 | Outpatient (CLI) | payer OTHER ==
--- NOTE | 2020-03-12 16:22 | REP ---
INDICATION: TESTICULAR PAIN UNSPECIFIED. COMPARISON: 12/04/2015. TECHNIQUE: Real-time sonographic evaluation of scrotum and contents performed. FINDINGS: The testicles are normal in size and echotexture, right testicle measuring 5.0 x 2.1 x 2.5 cm and left testicle 4.1 x 1.8 x 2.8 cm. No testicular mass or torsion is seen. Blood flow is seen in each testicle with duplex Doppler evaluation. A cyst in the head of the right epididymis measures 4 mm. Small calcification is seen along the surface of the mid left testicle anteriorly and medially. There are very small hydroceles. IMPRESSION: No significant abnormalities. <Electronically signed by Miguel Petty > 03/12/20 [id number]
== END ==
LOC: M RAD 15:44
PROVIDERS: ATTEND Nurse Practitioner Family
DX: N50.819 Testicular pain, unspecified (principal)

== ENCOUNTER → 2020-03-19 | Outpatient (CLI) | payer OTHER ==
--- NOTE | 2020-03-19 18:20 | REP ---
INDICATION: LEFT FLANK PAIN COMPARISON: Comparison CT study November 28, 2017.. TECHNIQUE: Helical scanning is acquired in 4 mm axial images were reformatted. Coronal and sagittal MPR images were generated and reviewed. FINDINGS: Preliminary digital foundry engineer radiograph shows an unremarkable bowel gas pattern. The lung bases are clear on axial CT images. There is marked diffuse fatty infiltration of the liver again noted. No focal liver lesion is seen. The spleen is normal in size homogeneous in texture. No abnormality is noted in the pancreas or the gallbladder. The adrenal glands are slightly thickened consistent with hyperplasia. This is unchanged from the November 28, 2017 prior study. No adrenal mass lesion is observed. No retroperitoneal mass or adenopathy is seen. There is no evidence hydronephrosis or intrarenal calculus. No mass or cyst is observed. Normal appendix is seen. No pelvic mass or adenopathy is observed. There are 2 or 3 dystrophic calcifications in the prostate gland. Seminal vesicles and urinary bladder are unremarkable. There is mild left colonic diverticulosis without CT evidence of diverticulitis. No abdominal wall defect is seen. No obstructive gastrointestinal lesion is seen. No bony destructive lesion. IMPRESSION: Marked diffuse fatty infiltration of the liver. Mild sigmoid colon diverticulosis. Otherwise negative. <Electronically signed by Chris Bragg > 03/19/20 [id number]
== END ==
LOC: M RAD 16:09
PROVIDERS: ATTEND Nurse Practitioner Family
DX: K76.0 Fatty (change of) liver, not elsewhere classified (principal); R10.9 Unspecified abdominal pain

== ENCOUNTER → 2020-03-23 | Outpatient (REF) | payer OTHER ==
[2020-03-23 17:58] LABS: APPEARANCE, URINE CLEAR (CLEAR); BACTERIA, URINE AUTO NEGATIVE (NEGATIVE); BILIRUBIN, URINE AUTO NEGATIVE (NEGATIVE); BLOOD, URINE BLOOD NEGATIVE (NEGATIVE); COLOR, URINE STRAW (YELLOW); GLUCOSE, URINE (UA) AUTO 3+ mg/dL (NEGATIVE); KETONE, URINE AUTO TRACE mg/dL (NEGATIVE); LEUKOCYTE ESTERASE, URINE AUTO NEGATIVE (NEGATIVE); MUCUS, URINE SMALL (NEGATIVE); NITRITE, URINE AUTO NEGATIVE (NEGATIVE); PROTEIN, URINE AUTO NEGATIVE (NEGATIVE); RBC, URINE AUTO 0 /HPF (0-3); SPECIFIC GRAVITY URINE AUTO 1.025 (1.002-1.035); SQUAMOUS EPITHELIAL CELL UR AU 0 /HPF (0-6); UROBILINOGEN, URINE AUTO 0.2 mg/dL (0.0-2.0); WBC, URINE AUTO 0 /HPF (0-3)
== END ==
LOC: M SMT 17:06
PROVIDERS: ATTEND Nurse Practitioner Family
DX: R35.1 Nocturia (principal)
CPT/HCPCS: 51798; 81001; 87086; G0463

== ENCOUNTER → 2021-02-03 | Outpatient (CLI) | payer OTHER ==
[~2021-02-03] MED LIST changes: +ASPI-161 PO; +DOXY100T PO; +EPIP0.3I2 IM; +GABA-283 PO; -GABA-845 PO; +ISOS1TAB35; -ISOS30TA4; -LISI40TA PO; +LISI40TA4 PO; +NITR4TASL SL; +ONDA-195 PO; +PERCOCET PO
[2021-02-03 11:44] LABS: BASO % 0.3 % (0.0-1.0); HEMATOCRIT 49.8 % (42.0-52.0); HEMOGLOBIN 16.8 g/dl (13.5-17.5); LYMPH # 1.1 10^3/uL (1.5-5.0); LYMPH % 8.5 % (24.0-44.0); MEAN CORPUSCULAR HEMOGLOBIN 28.7 pg (27.0-33.0); MEAN CORPUSCULAR HGB CONC 33.7 g/dl (32.0-36.5); MEAN CORPUSCULAR VOLUME 85.1 fl (80.0-96.0); MONO # 0.7 10^3/uL (0.0-0.8); MONO % 5.3 % (2.0-8.0); NEUTROPHILS # 10.7 10^3/uL (1.5-8.5); NEUTROPHILS % 84.9 % (36.0-66.0); PLATELET COUNT, AUTOMATED 152 10^3/uL (150-450); RED BLOOD COUNT 5.85 10^6/uL (4.30-6.10); WHITE BLOOD COUNT 12.5 10^3/uL (4.0-10.0)
[2021-02-03 11:55] LABS: HEMOGLOBIN A1c 7.6 %
[2021-02-03 12:25] LABS: ALBUMIN 3.6 GM/DL (3.2-5.2); ALT/SGPT 44 U/L (12-78); BILIRUBIN,TOTAL 1.4 MG/DL (0.2-1.0); BLOOD UREA NITROGEN 13 MG/DL (7-18); CARBON DIOXIDE LEVEL 27 MEQ/L (21-32); CHLORIDE LEVEL 98 MEQ/L (98-107); CREATININE FOR GFR 1.23 MG/DL (0.70-1.30); GLOMERULAR FILTRATION RATE > 60.0 (>56); GLUCOSE, FASTING 187 MG/DL (70-100); POTASSIUM SERUM 3.5 MEQ/L (3.5-5.1); SODIUM LEVEL 133 MEQ/L (136-145); TOTAL PROTEIN 7.3 GM/DL (6.4-8.2)
== END ==
LOC: M WUC 10:06
PROVIDERS: ATTEND Nurse Practitioner Family
DX: R50.9 Fever, unspecified (principal); E11.65 Type 2 diabetes mellitus with hyperglycemia; R30.0 Dysuria; R10.30 Lower abdominal pain, unspecified; J06.9 Acute upper respiratory infection, unspecified

== ENCOUNTER → 2021-02-03 | Outpatient (REF) | payer OTHER | LOC: M LAB REF 11:19 | PROVIDERS: ATTEND Nurse Practitioner Family | DX: R30.0 Dysuria (principal) ==

== ENCOUNTER 2021-02-04 13:24 | Inpatient (IN) | payer OTHER ==
[~2021-02-04] VITALS: Ht 185.4 cm; Wt 139.0 kg
[~2021-02-04 13:24] MED LIST changes: -ASPI-161 PO; -DOXY100T PO; -EPIP0.3I2 IM; -NITR4TASL SL; -ONDA-195 PO; -PERCOCET PO
--- OUTSIDE RECORDS SUMMARY | 2021-02-04 13:33 | CCD ---
Author Author [facility] Organization [facility] Address Unknown Phone Unavailable Care Team Providers Care Putty Glazer Name Role Phone Cornejo Lavern GROCERY STORE COURTESY CLERK Unavailable Unavailable Cornejo, Lavern GROCERY STORE COURTESY CLERK Unavailable Unavailable Cornejo, Lavern GROCERY STORE COURTESY CLERK Unavailable Unavailable Cornejo, Lavern GROCERY STORE COURTESY CLERK Unavailable Unavailable Cornejo, Lavern GROCERY STORE COURTESY CLERK Unavailable Unavailable Cornejo, Lavern GROCERY STORE COURTESY CLERK Unavailable Unavailable Cornejo, Lavern GROCERY STORE COURTESY CLERK Unavailable Unavailable Cornejo, Lavern GROCERY STORE COURTESY CLERK Unavailable Unavailable Cornejo, Lavern GROCERY STORE COURTESY CLERK Unavailable Unavailable Cornejo, Lavern GROCERY STORE COURTESY CLERK Unavailable Unavailable Cornejo, Lavern GROCERY STORE COURTESY CLERK Unavailable Unavailable Cornejo, Lavern GROCERY STORE COURTESY CLERK Unavailable Unavailable Cornejo, Lavern GROCERY STORE COURTESY CLERK Unavailable Unavailable Maring, Ezekiel PA Unavailable Unavailable Maring, Ezekiel PA Unavailable Unavailable Maring, Zeekiel PA Unavailable Unavailable Maring, Ezekiel PA Unavailable Unavailable Maring, Ezekiel PA Unavailable Unavailable Maring, Ezekiel PA Unavailable Unavailable Maring, Ezekiel PA Unavailable Unavailable Maring, Ezekiel PA Unavailable Unavailable Maring, Ezekiel PA Unavailable Unavailable Maring, Ezekiel PA Unavailable Unavailable Maring, Ezekiel PA Unavailable Unavailable Maring, Ezekiel PA Unavailable Unavailable Maring, Ezekiel PA Unavailable Unavailable Maring, Ezekiel PA Unavailable Unavailable Maring, Ezekiel PA Unavailable Unavailable Maring, Ezekiel PA Unavailable Unavailable LETTIERE, A LAUREANO PA Unavailable Unavailable LETTIERE, A LAUREANO PA Unavailable Unavailable LETTIERE, A LAUREANO PA Unavailable Unavailable LETTIERE, A LAUREANO PA Unavailable Unavailable LETTIERE, A LAUREANO PA Unavailable Unavailable LETTIERE, A LAUREANO PA Unavailable Unavailable LETTIERE, A LAUREANO PA Unavailable Unavailable LETTIERE, A LAUREANO PA Unavailable Unavailable LETTIERE, A LAUREANO PA Unavailable Unavailable LETTIERE, A LAUREANO PA Unavailable Unavailable LETTIERE, A LAUREANO PA Unavailable Unavailable LETTIERE, A LAUREANO PA Unavailable Unavailable LETTIERE, A LAUREANO PA Unavailable Unavailable LETTIERE, A LAUREANO PA Unavailable Unavailable LETTIERE, A LAUREANO PA Unavailable Unavailable LETTIERE, A LAUREANO PA Unavailable Unavailable LETTIERE, A LAUREANO PA Unavailable Unavailable LETTIERE, A LAUREANO PA Unavailable Unavailable LETTIERE, A LAUREANO PA Unavailable Unavailable LETTIERE, A LAUREANO PA Unavailable Unavailable LETTIERE, A LAUREANO PA Unavailable Unavailable LETTIERE, A LAUREANO PA Unavailable Unavailable LETTIERE, A LAUREANO PA Unavailable Unavailable LETTIERE, A LAUREANO PA Unavailable Unavailable LETTIERE, A LAUREANO PA Unavailable Unavailable LETTIERE, A LAUREANO PA Unavailable Unavailable LETTIERE, A LAUREANO PA Unavailable Unavailable LETTIERE, A LAUREANO PA Unavailable Unavailable LETTIERE, A LAUREANO PA Unavailable Unavailable LETTIERE, A LAUREANO PA Unavailable Unavailable LETTIERE, A LAUREANO PA Unavailable Unavailable PICKERAL JR, J CHRISTIANO PA-C Unavailable Unavailable PICKERAL JR, J CHRISTIANO PA-C Unavailable Unavailable PICKERAL JR, J CHRISTIANO PA-C Unavailable Unavailable PICKERAL JR, J CHRISTIANO PA-C Unavailable Unavailable PICKERAL JR, J CHRISTIANO PA-C Unavailable Unavailable PICKERAL JR, J CHRISTIANO PA-C Unavailable Unavailable PICKERAL JR, J CHRISTIANO PA-C Unavailable Unavailable PICKERAL JR, J CHRISTIANO PA-C Unavailable Unavailable PICKERAL JR, J CHRISTIANO PA-C Unavailable Unavailable PICKERAL JR, J CHRISTIANO PA-C Unavailable Unavailable PICKERAL JR, J CHRISTIANO PA-C Unavailable Unavailable PICKERAL JR, J CHRISTIANO PA-C Unavailable Unavailable PICKERAL JR, J CHRISTIANO PA-C Unavailable Unavailable PICKERAL JR, J CHRISTIANO PA-C Unavailable Unavailable PICKERAL JR, J CHRISTIANO PA-C Unavailable Unavailable PICKERAL JR, J CHRISTIANO PA-C Unavailable Unavailable PICKERAL JR, J CHRISTIANO PA-C Unavailable Unavailable PICKERAL JR, J CHRISTIANO PA-C Unavailable Unavailable PICKERAL JR, J CHRISTIANO PA-C Unavailable Unavailable PICKERAL JR, J CHRISTIANO PA-C Unavailable Unavailable PICKERAL JR, J CHRISTIANO PA-C Unavailable Unavailable PICKERAL JR, J CHRISTIANO PA-C Unavailable Unavailable PICKERAL JR, J CHRISTIANO PA-C Unavailable Unavailable PICKERAL JR, J CHRISTIANO PA-C Unavailable Unavailable PICKERAL JR, J CHRISTIANO PA-C Unavailable Unavailable PICKERAL JR, J CHRISTIANO PA-C Unavailable Unavailable PICKERAL JR, J CHRISTIANO PA-C Unavailable Unavailable Orosco, Nicole Deloris PA Unavailable Unavailable Orosco, Nicole Deloris PA Unavailable Unavailable Orosco, Nicole Deloris PA Unavailable Unavailable Orosco, Nicole Deloris PA Unavailable Unavailable Orosco, Nicole Deloris PA Unavailable Unavailable Orosco, Niocle Deloris PA Unavailable Unavailable Orosco, Nicole Deloris PA Unavailable Unavailable Orosco, Nicole Deloris PA Unavailable Unavailable Orosco, Nicole Deloris PA Unavailable Unavailable Orosco, Nicole Deloris PA Unavailable Unavailable Re-disclosure Warning The records that you are about to access may contain information from federally-assisted alcohol or drug abuse programs. If such information is present, then the following federally mandated warning applies: This information has been disclosed to you from records protected by federal confidentiality rules (42 CFR part 2). The federal rules prohibit you from making any further disclosure of this information unless further disclosure is expressly permitted by the written consent of the person to whom it pertains or as otherwise permitted by 42 CFR part 2. A general authorization for the release of medical or other information is NOT sufficient for this purpose. The Federal rules restrict any use of the information to criminally investigate or prosecute any alcohol or drug abuse patient.The records that you are about to access may contain highly sensitive health information, the redisclosure of which is protected by Article 27-F of the [facility] Public Health law. If you continue you may have access to information: Regarding HIV / AIDS; Provided by facilities licensed or operated by the [facility] Office of Mental Health; or Provided by the [facility] Office for People With Developmental Disabilities. If such information is present, then the following [facility] mandated warning applies: This information has been disclosed to you from confidential records which are protected by state law. State law prohibits you from making any further disclosure of this information without the specific written consent of the person to whom it pertains, or as otherwise permitted by law. Any unauthorized further disclosure in violation of state law may result in a fine or retirement sentence or both. A general authorization for the release of medical or other information is NOT sufficient authorization for further disc losure. Family History Family Member Name Family Member Gender Family Member Status Date o f Status Description Data Source(s) Unknown Unknown Problem MED[facility] ([facility] paternal side Unknown Unknown Problem MEDENT ([facility], [facility]) Unknown Male Problem MED[facility] ([facility]) Unknown Male Problem MEDENT ([facility]) Unknown Unknown Problem [facility] ([facility] Encounters Encounter Providers Location Date Indications Data Source(s ) Outpatient 02/04/2021 10:14:48 AM EDT - 021 11:58:58 AM EDT [facility] ([facility]) Outpatient Attender: Lavern washburn 02/03/2021 08:40:00 AM EDT [facility] ([facility]) Outpatient Attender: Ezekiel CABEZAS 06/24/19 09:04:06 AM EDT - 06/23/2020 09:58:13 AM EDT [facility] ([facility] ) Outpatient Attender: LAUREANO perry 05/13/2020 12:00:00 PM EST MEDENT ([facility], [facility]) Outpatient Attender: CHRISTIANO Glover 0 05/06/2020 08:00:00 AM EST [facility] ([facility] ) [place] [address] [facility] [address] 03/23/2020 12:00:00 AM EST eCW1 ([facility]) [place] [address] [facility] [address] 03/11/2020 12:00:00 AM EST eCW1 ([facility]) [place] [address] [facility] [place] [address] 03/05/2020 12:00:00 AM EST eCW1 ([facility]) Outpatient Attender: Deloris perry 03/03/2020 04:45:00 PM EST MEDENT ([facility], [facility]) Outpatient [address] [facility] [address] 03/03/2020 12:00:00 AM EST eCW1 ([facility]) Immunizations Vaccine Date Status Description Data Source(s) COVID-19 VACCINE Moderna 08/05/2020 12:00:00 AM EDT completed [facility]IS Vaccine Series Complete: YESThis Data wa s Submitted to [facility] Via [employer]. COVID-19 VACCINE Moderna 07/09/2020 12:00:00 AM EDT completed [facility]IS Vaccine Series Complete: NOThis Data was Submitted to [facility] Via [employer]. Medications Medication Brand Name Start Date Product Form Dose Route Admi nistrative Instructions Pharmacy Instructions Status Indications Reaction Description Data Source(s) NITROFURANTOIN, MACROCRYSTALS 25 MG / Ni trofurantoin, Monohydrate 75 MG Oral Capsule Nitrofurantoin Monohyd Macro 02/03/2021 12:00:00 AM EDT ORAL active MEDENT ([facility]) Ondansetron 4 MG Oral Tablet Ondansetron HCL 02/03/2021 12:00:00 AM EDT active MEDENT ([facility]) Ondansetron 4 MG Disintegrating Oral Tablet Ondansetron 05/13/2020 12:00:00 AM EST active MEDENT ([facility]) Doxycycline Monohydrate 100 MG Oral Tablet Doxycycline Monoh ydrate 05/13/2020 12:00:00 AM EST ORAL active M EDENT ([facility]) Codeine Phosphate 2 MG/ML / Guaifenesin 20 MG/ML Oral Soluti on Cheratussin ac 05/13/2020 12:00:00 AM EST ORAL active MEDENT ([facility]) Prednisone 20 MG Oral Tablet Prednisone 05/13/2020 12:00:00 AM EST active MEDENT ([facility]) tadalafil 20 MG Oral Tablet Tadalafil 20 MG Tadalafil 20 MG 03/23/2020 12:00:00 AM EST 1.0 {tablet} active Tadalafil 2 0 MG eCW1 ([facility]) Prednisone 20 MG Oral Tablet Prednisone 03/03/2020 12:00:00 AM EST completed MEDENT ([facility]) Ciprofloxacin 500 MG Oral Tablet Ciprofloxacin HCl 500 MG Ciprofloxacin HCl 500 MG 03/03/2020 12:00:00 AM EST 1.0 {tablet} activ e Ciprofloxacin HCl 500 MG eCW1 ([facility]) Ciprofloxacin 500 MG Oral Tablet Ciprofloxacin HCl 500 MG Ciprofloxacin HCl 500 MG 03/03/2020 12:00:00 AM EST 1.0 {tablet} activ e Ciprofloxacin HCl 500 MG eCW1 ([facility]) Ciprofloxacin 500 MG Oral Tablet Ciprofloxacin HCl 500 MG Ciprofloxacin HCl 500 MG 03/03/2020 12:00:00 AM EST 1.0 {tablet} activ e Ciprofloxacin HCl 500 MG eCW1 ([facility]) Ciprofloxacin 500 MG Oral Tablet Ciprofloxacin HCl 500 MG Ciprofloxacin HCl 500 MG 03/03/2020 12:00:00 AM EST 1.0 {tablet} activ e Ciprofloxacin HCl 500 MG eCW1 ([facility]) Insurance Providers Payer name Policy type / Coverage type Policy ID Covered republican ID Covered republican's relationship to cifuentes Policy Cifuentes Plan Information [facility] Service [facility] Part B [id number] Self [id number] [facility] [id number] Self [id number] [facility] Service [facility] [id number] Self [id number] [facility] Service [facility] B [id number] Self [id number] [facility] [id number] U [id number] Self [id number] 'S ADMINISTRATION [id number] SP [id number] [place] [employer] [id number] SP [id number] [place] [id number] Self [id number] [place] [id number] Self [id number] [place] [employer] [id number] Self [id number] [place] [id number] Self [id number] U [id number] Self [id number] U [id number] Self [id number] [facility] [id number] SP [id number] SELF PAY [facility] emp [id number] Employee [id number] [employer] emp [id number] Employee [id number] [facility] / [id number] Self [id number] [place] [facility] Commercial [id number] Self [id number] [place] Commercial [id number] Self [id number] [facility] Federal Service Medigap Part B [id number] Self [id number] [facility] Federal Service Medigap Part B [id number] Self [id number] [facility] Federal Service Medigap Part B [id number] Self [id number] [facility] Federal Service Medigap Part B [id number] Self [id number] [place] [id number] [id number] Self [id number] 'S ADMINISTRATION [id number] SP [id number] [employer] [employer] O [id number] S [id number] [place] Commercial [id number] Self [id number] [place] Commercial [id number] Self [id number] [employer] [place] [id number] Self [employer]ALTH[employer]/ AD O [id number] S [id number] [employer] Servic Commercial [id number] Self N REGIONAL CLAIMS KATHIE-O/P [id number] [id number] [facility] [id number] SP [id number] [facility] O [id number] S [id number] [employer] [place] [id number] SP [id number] [place] HUMANA [id number] SP [id number] [employer]MA[employer] [place]AST REG O [id number] S [id number] [place] Claim Commercial [id number] Self [id number] [place] Claim Commercial [id number] Self [id number] [place] Commercial [id number] [id number] Self [id number] [place] Commercial [id number] Self [id number] ANSI-Commercial [id number] ANSI-Commercial [id number] ANSI-Commercial [id number] ANSI-Commercial [id number] ANSI-Commercial [id number] EAST ACTIVE DUTY [id number] SP [id number] [facility] O [id number] S [id number] Problems, Conditions, and Diagnoses Code Display Name Description Problem Type Effective Dates Data Source(s) 19387702 Type 2 diabetes mellitus Type 2 diabetes mellitus Prob val 05/06/2020 12:00:00 AM EST MEDENT ([facility]) Z12.5 Screening for malignant neoplasm of prostate Pro state cancer screening Problem 03/23/2020 12:00:00 AM EST eCW1 ([facility]) N50.819 Pain of testes Testicular pain, unspecified Problem 03/03/2020 12:00:00 AM EST eCW1 ([facility]) Surgeries/Procedures Procedure Description Date Indications Data Source(s) OFFICE OUTPATIENT VISIT 25 MINUTES 02/03/2021 12:00:00 AM EDT MEDENT ([facility], [facility]) ECG ROUTINE ECG W/LEAST 12 LDS W/I&R 05/06/2020 12:00: 00 AM EST MEDENT ([facility]) Ultrasound, Each 15 Min, Constant Attendance 0 12:00:00 AM EST MED[facility] ([facility] ) THERAPEUTIC PX 1/> AREAS EACH 15 MIN EXERCISES 12:00:00 AM EST MEDENT ([facility] ) MANUAL THERAPY TQS 1/> REGIONS EACH 15 MINUTES 12:00:00 AM EST MEDENT ([facility] ) APPL MODALITY 1/> AREAS ELEC STIMJ EA 15 MIN 0 12:00:00 AM EST MEDENT ([facility] ) Ultrasound, Each 15 Min, Constant Attendance 0 12:00:00 AM EST MED[facility] ([facility] ) THERAPEUTIC PX 1/> AREAS EACH 15 MIN EXERCISES 12:00:00 AM EST MEDENT ([facility] ) MANUAL THERAPY TQS 1/> REGIONS EACH 15 MINUTES 12:00:00 AM EST MEDENT ([facility] ) APPL MODALITY 1/> AREAS ELEC STIMJ EA 15 MIN 0 12:00:00 AM EST MED[facility] ([facility] ) Ultrasound, Each 15 Min, Constant Attendance 0 12:00:00 AM EST MEDENT ([facility] ) THERAPEUTIC PX 1/> AREAS EACH 15 MIN EXERCISES 12:00:00 AM EST MEDENT ([facility] ) MANUAL THERAPY TQS 1/> REGIONS EACH 15 MINUTES 12:00:00 AM EST MEDENT ([facility] ) MANUAL THERAPY TQS 1/> REGIONS EACH 15 MINUTES 12:00:00 AM EDT MEDENT ([facility] ) THERAPEUTIC PX 1/> AREAS EACH 15 MIN EXERCISES 12:00:00 AM EDT MEDENT ([facility] ) Ultrasound, Each 15 Min, Constant Attendance 0 12:00:00 AM EDT MEDENT ([facility] ) APPL MODALITY 1/> AREAS ELEC STIMJ EA 15 MIN 0 12:00:00 AM EDT MEDENT ([facility] ) APPLICATION MODALITY 1/> AREAS HOT/COLD PACKS 01/15/20 12:00:00 AM EDT MED[facility] ([facility] ) APPL MODALITY 1/> AREAS ELEC STIMJ EA 15 MIN 0 12:00:00 AM EDT MED[facility] ([facility] ) Ultrasound, Each 15 Min, Constant Attendance 0 12:00:00 AM EDT MEDENT ([facility] ) THERAPEUTIC PX 1/> AREAS EACH 15 MIN EXERCISES 12:00:00 AM EDT MEDENT ([facility] ) MANUAL THERAPY TQS 1/> REGIONS EACH 15 MINUTES 12:00:00 AM EDT MEDENT ([facility]) APPL MODALITY 1/> AREAS ELEC STIMJ EA 15 MIN 0 12:00:00 AM EDT MEDENT ([facility]) Physical Therapy Eval - Low Complexity 01/08/2020 12:0 0:00 AM EDT MEDENT ([facility]) Results ID Date Data Source [id number] 02/03/2021 10:08:00 AM EDT MEDENT ([facility], [facility]) Name Value Range Interpretation Code Description Data Gay rce(s) Supporting Document(s) Hemoglobin A1c 7.6 % [facility]) <content>REFERENCE RANGES:</content><br/ ><content></content>
<content><=5.6% NORMAL</content>
<content>5.7-6.4% SUGGESTS IMPAIRED GLUCOSE METABOLISM/PREDIABETIC</content>
<content>>= 6.5% ABNORMAL</content>
<content></content> Estimated Average Glucose 171 mg/dL 60-110 [facility]) ID Date Data Source [id number] 02/03/2021 10:08:00 AM EDT MEDENT ([facility]) Name Value Range Interpretation Code Description Data Gay rce(s) Supporting Document(s) Glucose, Fasting 187 mg/dL 70-100 MEDENT ([facility], [facility]) Blood Urea Nitrogen 13 mg/dL 7-18 MEDENT ([facility]) Creatinine For GFR 1.23 mg/dL 0.70-1.30 MEDENT ([facility]) Sodium Level 133 meq/L 136-145 MED[facility] ([facility]) Glomerular Filtration Rate Laboratory test result [facility]) <content>Units are mL/min/1.73 m2</content>
<content></content>
<content>Chronic Kidney Disease Staging per NKF:</content>
<content></content>
<content>Stage I & II GFR >=60 Normal to Mildly Decreased</content>
<content>Stage III GFR 30-59 Moderately Decreased</content>
<content>Stage IV GFR 15-29 Severely Decreased</content>
<content>Stage V GFR <15 Very Little GFR Left</content>
<content>ESRD GFR <15 on VERTICAL PUNCH OPERATOR</content>
<content></content> Potassium Serum 3.5 meq/L 3.5-5.1 MEDENT ([facility]) Chloride Level 98 meq/L 98-107 MED[facility] ([facility], [facility]) Anion Gap 8 meq/L 8-16 MED[facility] ([facility], [facility]) Carbon Dioxide Level 27 meq/L 21-32 MEDENT ([facility], [facility]) Ast/Sgot 23 U/L 7-37 MED[facility] ([facility], [facility]) Calcium Level 9.0 mg/dL 8.5-10.1 MED[facility] ([facility], [facility]) Bilirubin,Total 1.4 mg/dL 0.2-1.0 MED[facility] ([facility], [facility]) Alt/SGPT 44 U/L 12-78 MED[facility] ([facility], [facility]) Alkaline Phosphatase 69 U/L 45-117 MED[facility] ([facility], [facility]) Albumin/Globulin Ratio 1.0 MEDENT ([facility], [facility]) Albumin 3.6 GM/DL 3.2-5.2 MEDENT ([facility], [facility]) Total Protein 7.3 GM/DL 6.4-8.2 MED[facility] ([facility], [facility]) ID Date Data Source [id number] 02/03/2021 10:08:00 AM EDT MEDENT ([facility], [facility]) Name Value Range Interpretation Code Description Data Gay rce(s) Supporting Document(s) White Blood Count 12.5 10 4.0-10.0 MEDENT ([facility], [facility]) Hemoglobin 16.8 g/dL 13.5-17.5 MEDENT ([facility], [facility]) Hematocrit 49.8 % 42.0-52.0 MEDENT [facility], [facility]) Red Blood Count 5.85 10 4.30-6.10 MEDENT ([facility], [facility]) Mean Corpuscular HGB Conc 33.7 g/dL 32.0-36.5 MEDENT ([facility], [facility]) Mean Corpuscular Volume 85.1 fl 80.0-96.0 M EDENT ([facility], [facility]) Mean Corpuscular Hemoglobin 28.7 pg 27.0-33.0 MEDENT ([facility], [facility]) Neutrophils % 84.9 % 36.0-66.0 MEDENT ([facility], [facility]) Red Cell Distribution Width 13.1 % 11.5-14.5 MED[facility] ([facility], [facility]) Platelet Count, Automated 152 10 150-450 MED[facility] ([facility], [facility]) Stoddard % 5.3 % 2.0-8.0 MEDENT ([facility], [facility]) Lymph % 8.5 % 24.0-44.0 MEDENT ([facility], [facility]) Baso % 0.3 % 0.0-1.0 MEDENT ([facility], [facility]) Immature Granulocyte % 1.0 % 0-3.0 MEDENT ([facility], [facility]) Eos % 0.0 % 0.0-3.0 MEDENT ([facility], [facility]) Nucleated Red Blood Cell % 0.0 % 0-0 MED ENT ([facility], [facility]) Neutrophils # 10.7 10 1.5-8.5 MEDENT ([facility], [facility]) [place]ard # 0.7 10 0.0-0.8 MEDENT ([facility]) Eos # 0.0 10 0.0-0.5 MEDENT ([facility]) Lymph # 1.1 10 1.5-5.0 MEDENT ([facility]) Baso # 0.0 10 0.0-0.2 MEDENT ([facility]) ID Date Data Source [id number] 02/03/2021 10:03:00 AM EDT [facility] Name Value Range Interpretation Code Description Data Gay rce(s) Supporting Document(s) Respiratory Panel Laboratory test result [facility] ([facility]) This respiratory PCR panel detects Influ amisha A H1, H3 and 2009 H1 viruses, Influenza B virus, Resp iratory Syncytial Virus, Human metapneumovirus, Parainfluenza virus 1, 2, 3 and 4, Adenovirus, Rhinovirus/Enterovirus, Coronavirus HKU1, NL63, OC43, 229E and SARS-CoV-2 (COVID 19), Bordetella pertussis, Bordetella parapertussis, Mycoplasma pneumoniae and Chlamydia pneumoniae. NEGATIVE by MULTIPLEXED NUCLEIC ACID PCR SARS-CoV-2 (COVID 19) NEGATIVE - SARS-CoV-2 (COVID19) ID Date Data Source [id number] 02/03/2021 09:30:00 AM EDT MED[facility] ([facility]) Name Value Range Interpretation Code Description Data Gay rce(s) Supporting Document(s) Bacteria identified in Urine by Culture Laboratory test result MED[facility] ([facility]) FULL REPORT IN LAB NOTES (eCW and Medent ). NO GROWTH ID Date Data Source [id number] 05/06/2020 09:58:00 AM EST [facility] Name Value Range Interpretation Code Description Data Gay rce(s) Supporting Document(s) Cholesterol [Mass/volume] in Serum or Plasma 223 mg/dL 131-200 MED[facility] ([facility]) Triglyceride [Mass/volume] in Serum or Plasma 167 mg/dL 30-150 [facility] ([facility]) Cholesterol in LDL [Mass/volume] in Serum or Plasma by calcu lation 148 CALC 50-159 MED[facility] ([facility]) Cholesterol in HDL [Mass/volume] in Serum or Plasma 42 mg/dL 35-60 MED[facility] ([facility]) ID Date Data Source [id number] 05/06/2020 09:58:00 AM EST [facility] ([facility]) Name Value Range Interpretation Code Description Data Gay rce(s) Supporting Document(s) Urea nitrogen [Mass/volume] in Serum or Plasma 14 mg/dL 7-18 MEDENT ([facility]) Glucose [Mass/volume] in Serum or Plasma 205 mg/dL 74-99 [facility] ([facility]) 100-125 mg/dL PRE-DIABETES/FASTING >126 mg/dL DIABETES/FASTING Sodium [Moles/volume] in Serum or Plasma 141 meq/L 136-145 [facility] ([facility]) Creatinine 1.2 mg/dL 0.6-1.3 [facility] ([facility]) Potassium [Moles/volume] in Serum or Plasma 3.6 meq/L 3.5-5.1 [facility] ([facility]) Chloride [Moles/volume] in Serum or Plasma 101 meq/L 98-107 [facility] ([facility]) Carbon dioxide, total [Moles/volume] in Serum or Plasma 28 meq/L 21 -32 [facility] ([facility]) Calcium [Mass/volume] in Serum or Plasma 8.8 mg/dL 8.5-10.1 [facility] ([facility]) Total Bilirubin 0.7 mg/dL 0.2-1.0 [facility] ([facility]) Aspartate aminotransferase [Enzymatic activity/volume] in Serum or Plasma 63 U/L 15-37 [facility] ([facility] ) Alkaline phosphatase isoenzyme [Units/volume] in Serum or Pl asma 92 mg/dL 46-116 [facility] ([facility]) Alanine aminotransferase [Enzymatic activity/volume] in Seru m or Plasma 87 U/L 12-78 [facility] ([facility]) Proteinase 3 Ab [Units/volume] in Serum 7.4 g/dL 6.4-8.2 [facility] ([facility]) Albumin [Mass/volume] in Serum or Plasma 3.9 g/dL 3.4-5.0 [facility] ([facility]) Glomerular filtration rate/1.73 sq M pre dicted among non-blacks [Volume Rate/Area] in Serum or Plasma by Creatinine-based formula (MDRD) Laboratory test result [facility] ([facility] ) A/G Ratio 1.11 CALC 1.00-1.90 [facility] [facility]) Glomerular filtration rate/1.73 sq M pre dicted among blacks [Volume Rate/Area] in Serum or Plasma by Creatinine-based formula (MDRD) Laboratory test result [facility] ([facility]) <content>CHRONIC KIDNEY DISEASE STAGING PER NKF</content>
<content></content>
<content>STAGE I & II GFR >= 60 NORMAL TO MILDLY DECREASED</content>
<content>STAGE III GFR 30-59 MODERATELY DECREASED</content>
<content>STAGE IV GFR 15-29 SEVERELY DECREASED</content>
<content>STAGE V GFR <15 VERY LITTLE GFR LEFT</content>
<content>ESRD GFR <15 ON VERTICAL PUNCH OPERATOR</content>
<content></content> ID Date Data Source [id number] 05/06/2020 09:58:00 AM EST [facility] ([facility]) Name Value Range Interpretation Code Description Data Gay rce(s) Supporting Document(s) Hemoglobin A1c/Hemoglobin.total in Blood 9.3 % [facility] ([facility]) Lab Result Notes: Pre-Diabetes 5.7 - 6.4 % Diabetes = or > 6.5% Glucose mean value [Mass/volume] in Blood Estimated fr om glycated hemoglobin 220 mg/dL 60-110 [facility] ([facility] ) ID Date Data Source [id number] 05/06/2020 09:58:00 AM EST [facility] ([facility]) Name Value Range Interpretation Code Description Data Gay rce(s) Supporting Document(s) Erythrocytes [#/volume] in Blood by Automated count 6.08 x10*6/UL 4.2 0-6.30 [facility] ([facility]) Leukocytes [#/volume] in Blood by Automated count 4.6 x10*3/UL 4.1-10 .9 [facility] ([facility]) Hemoglobin [Mass/volume] in Blood 17.5 g/dL 12.0-18.0 [facility] ([facility]) Hematocrit [Volume Fraction] of Blood by Automated count 51.3 % 3 7.0-51.0 [facility] ([facility]) MCV 84.2 fL 80.0-97.0 [facility] [facility] Erythrocyte distribution width [Ratio] by Automated count 13.7 % 11.6-13.7 [facility] ([facility]) MCH 28.7 pg 26.0-32.0 [facility] ([place] [facility]) MCHC 34.1 g/dL 31.0-38.0 [facility] [facility] MPV 8.1 FL 7.8-11.0 [facility] ([place] [facility]) Platelets [#/volume] in Blood by Automated count 144 x10*3/UL 140-440 [facility] ([facility]) Neut % 69.7 % 37.0-92.0 [facility] [facility] Lymph % 24.4 % 10.0-58.5 [facility] ([place] [facility]) Mid % 5.9 % 1.7-9.3 [facility] [facility] Mid # 0.3 x10*3/UL 0.1-0.6 [facility] ([facility]) Neut # 3.2 x10*3/UL 2.0-7.8 [facility] ([facility]) Lymph # 1.1 x10*3/UL 0.6-4.1 [facility] ([facility]) ID Date Data Source URINE CULTURE 03/23/2020 12:00:00 AM EST eCW1 ([facility]) Name Value Range Interpretation Code Description Data Gay rce(s) Supporting Document(s) Laboratory studies (set) URINE CULTU RE eCW1 ([facility]) ID Date Data Source UA URINALYSIS 03/23/2020 12:00:00 AM EST eCW1 ([facility]) Name Value Range Interpretation Code Description Data Gay rce(s) Supporting Document(s) Laboratory studies (set) UA URINALYS IS eCW1 ([facility]) ID Date Data Source [id number] 03/03/2020 12:00:00 AM EST [facility] Name Value Range Interpretation Code Description Data Gay rce(s) Supporting Document(s) SARS coronavirus 2 Ag [facility] This lab was ordered by [facility] and reported by [facility]. Procedure Social History Code Duration Value Status Description Data Source(s ) ETOH Use 05/06/2020 12:00:00 AM EST Currently consumes alcohol completed Currently consumes alcohol [facility] ([facility]) Smoking 05/06/2020 12:00:00 AM EST Patient is a former smoker completed Patient is a former smoker [facility] ([facility]) Smoking 03/23/2020 12:00:00 AM EST UNK completed eCW1 ([facility]) Smoking 03/03/2020 12:00:00 AM EST UNK completed eCW1 ([facility]) Smoking 03/03/2020 12:00:00 AM EST UNK completed eCW1 ([facility]) Smoking 03/03/2020 12:00:00 AM EST UNK completed eCW1 ([facility]) Vital Signs ID Date Data Source UNK Name Value Range Interpretation Code Description Data Source(s) Systolic blood pressure 155 mm[Hg] 155 mm[Hg] M EDENT ([facility], [facility]) Diastolic blood pressure 79 mm[Hg] 79 mm[Hg] [facility] ([facility]) Heart rate 109 /min 109 /min [facility] ([facility]) Respiratory rate 26 /min 26 /min [facility] ( [facility]) Oxygen saturation in Arterial blood by Pulse oximetry 97 % 97 % [facility] ([facility]) Body temperature 100.8 [degF] 100.8 [degF] MEDE NT ([facility]) Body weight 305.00 [lb_av] 305.00 [lb_av] MEDEN T ([place] [facility], [facility]) Body height 73 [in_i] 73 [in_i] [facility] ([facility], [facility]) 6'1" Body mass index (BMI) [Ratio] 40.2 kg/m2 40.2 k g/m2 [facility] ([facility], [facility]) Systolic blood pressure 148 mm[Hg] 148 mm[Hg] M EDENT ([facility], [facility]) Diastolic blood pressure 76 mm[Hg] 76 mm[Hg] [facility] ([place] [facility], [facility]) Heart rate 107 /min 107 /min [facility] ([facility], [facility]) Respiratory rate 22 /min 22 /min [facility], [facility]) Oxygen saturation in Arterial blood by Pulse oximetry 96 % 96 % [facility] ([facility], [facility]) Body temperature 98.2 [degF] 98.2 [degF] [facility], [facility]) Body weight 387.00 [lb_av] 387.00 [lb_av] MEDEN T ([place] [facility], [facility]) Body height 73 [in_i] 73 [in_i] [facility] ([facility], [facility]) 6'1" Body mass index (BMI) [Ratio] 51.1 kg/m2 51.1 k g/m2 [facility] ([place] [facility], [facility]) Systolic blood pressure 160 mm[Hg] 160 mm[Hg] M EDENT ([facility]) Diastolic blood pressure 94 mm[Hg] 94 mm[Hg] [facility] ([facility]) Heart rate 96 /min 96 /min [facility] ([facility]) Body height 73 [in_i] 73 [in_i] [facility] ([facility]) 6'1" Body weight 383.00 [lb_av] 383.00 [lb_av] MEDEN T ([facility]) Oxygen saturation in Arterial blood by Pulse oximetry 99 % 99 % [facility] Air Body mass index (BMI) [Ratio] 50.5 kg/m2 50.5 k g/m2 [facility] ([facility]) Body weight 375 [lb_av] 375 [lb_av] eCW1 ([facility]) Body height [in_i] eCW1 ([facility]) Body mass index (BMI) [Ratio] 49.47 kg/m2 49.47 kg/m2 W1 ([facility]) Heart rate 108 /min 108 /min eCW1 ([facility]) Respiratory rate 18 /min 18 /min eCW1 ([facility]) Body temperature 98.1 [degF] 98.1 [degF] eCW1 ( [facility]) Systolic blood pressure 130 mm[Hg] 130 mm[Hg] e CW1 ([facility]) Diastolic blood pressure 70 mm[Hg] 70 mm[Hg] eCW1 ([facility]) Systolic blood pressure 157 mm[Hg] 157 mm[Hg] M EDENT ([place] [facility], [facility]) Diastolic blood pressure 95 mm[Hg] 95 mm[Hg] MED[facility] ([facility], [facility]) Heart rate 82 /min 82 /min [facility] ([facility], [facility]) Respiratory rate 18 /min 18 /min MED[facility] ( [facility], [facility]) Oxygen saturation in Arterial blood by Pulse oximetry 96 % 96 % [facility] ([facility], [facility]) Body temperature 98.2 [degF] 98.2 [degF] [facility] ([place] [facility], [facility]) Body weight 373.00 [lb_av] 373.00 [lb_av] MEDEN T ([place] [facility], [facility]) Body weight 374.8 [lb_av] 374.8 [lb_av] eCW1 ([facility]) Body height [in_i] eCW1 ([facility]) Body mass index (BMI) [Ratio] 49.44 kg/m2 49.44 kg/m2 W1 ([facility]) Heart rate 91 /min 91 /min eCW1 ([facility]) Respiratory rate 18 /min 18 /min eCW1 ([facility]) Body temperature 97.1 [degF] 97.1 [degF] eCW1 ( [facility]) Systolic blood pressure 136 mm[Hg] 136 mm[Hg] e CW1 ([facility]) Diastolic blood pressure 68 mm[Hg] 68 mm[Hg] eCW1 ([facility]) Patient Treatment Plan of Care Planned Activity Planned Date Details Description Data Source (s) tadalafil 20 MG Oral Tablet 03/23/2020 12:00:00 AM EST eCW1 ([facility]) Ciprofloxacin 500 MG Oral Tablet 03/03/2020 12:00:00 AM EST eCW1 ([facility]) Ciprofloxacin 500 MG Oral Tablet 03/03/2020 12:00:00 AM EST eCW1 ([facility]) Ciprofloxacin 500 MG Oral Tablet 03/03/2020 12:00:00 AM EST eCW1 ([facility])
--- OUTSIDE RECORDS SUMMARY | 2021-02-04 13:33 | CCD | Continuity of Care Document ---
Author Author Manuelito PITTS Organization Unknown Address [address] [place] [id number] Phone [phone] Care Team Providers Care Mainframe Programmer Analyst Name Role Phone Becky Carlton MD AUTM [phone] David Toro MD AUTM [phone] [employer] AUTM [phone] Problems Description No Information Available Social History Type Date Description Comments Sex Unknown Smokeless Tobacco Current Smokeless Tobacco User , Uses 10 Times Daily ETOH Use Occasionally consumes alcohol Tobacco Use Start: Unknown Patient has never smoked Tobacco Use Start: Unknown The Patient Has Never Vaped Smoking Status Reviewed: 02/03/21 The Patient Has Never Vaped Allergies and adverse reactions Active Allergies Criticality Reaction | Severity Comments Date Penicillin Unable to assess criticality 03/16/2017 Bee Sting Unable to assess criticality 03/16/2017 Medications Active Medications SIG Qnty Indications Ordering Provide r Date Ondansetron HCL 4mg Tablets 1 tablet every 8 hours as needed for nausea/vomiting 14tabs R10.30 Co mahad Ruby JR., M.D. 02/03/2021 Nitrofurantoin Monohyd Macro 100mg Capsules take one capsule twice a day by mouth for 5 days 10caps R30.0 José Ruby JR., M.D. 02/03/2021 Amlodipine Besylate 10 mg qd Unknown Epipen 2-Justin 0.3mg/0 .3ML Solution Auto-Inject use as directed for signs/symptoms of anaphylaxis Unknown Metformin HCL 500mg Tablets 2 by mouth twice a day Unknown Aspirin 81 Low Dose 81mg Chewtabs qd Unknown Spironolactone 25mg Tablets q d Unknown Medications Administered in Office Medication SIG Qnty Indications Ordering Provider Date Methylprednisolone Sodium Succinate To 1 25 MG Injection Alyssa Abbasi 05/2019 Immunizations Description No Information Available Vital Signs Date Vital Result Comment 02/03/2021 8:47am BP Systolic 155 mmHg BP Diastolic 79 mmHg Heart Rate 109 /min Respiratory Rate 26 /min O2 % BldC Oximetry 97 % Body Temperature 100.8 F Weight 305.00 lb Height 73 inches 6'1" BMI (Body Mass Index) 40.2 kg/m2 Pain Level 0 05/13/2020 12:02pm BP Systolic 148 mmHg BP Diastolic 76 mmHg Heart Rate 107 /min Respiratory Rate 22 /min O2 % BldC Oximetry 96 % Body Temperature 98.2 F Weight 387.00 lb Height 73 inches 6'1" BMI (Body Mass Index) 51.1 kg/m2 Pain Level 0 Results Test Acquired Date Facility Test Result H/L Range Note CBC With Differential 02/03/[address] [id number] [phone] White Blood Count 12.5 10 High 4.0-10.0 Red Blood Count 5.85 10 Normal 4.30-6.10 Hemoglobin 16.8 g/dL Normal 13.5-17.5 Hematocrit 49.8 % Normal 42.0-52.0 Mean Corpuscular Volume 85.1 fl Normal 80.0-96.0 Mean Corpuscular Hemoglobin 28.7 pg Normal 27.0-33.0 Mean Corpuscular HGB Conc 33.7 g/dL Normal 32.0-36.5 Red Cell Distribution Width 13.1 % Normal 11.5-14.5 Platelet Count, Automated 152 10 Normal 150-450 Neutrophils % 84.9 % High 36.0-66.0 Lymph % 8.5 % Low 24.0-44.0 [place] % 5.3 % Normal 2.0-8.0 Eos % 0.0 % Normal 0.0-3.0 Baso % 0.3 % Normal 0.0-1.0 Immature Granulocyte % 1.0 % Normal 0-3.0 Nucleated Red Blood Cell % 0.0 % Normal 0-0 Neutrophils # 10.7 10 High 1.5-8.5 Lymph # 1.1 10 Low 1.5-5.0 [place] # 0.7 10 Normal 0.0-0.8 Eos # 0.0 10 Normal 0.0-0.5 Baso # 0.0 10 Normal 0.0-0.2 Comprehensive Metabolic Profil 02/03/[address] [address] [phone] Glucose, Fasting 187 mg/dL High 70-100 Blood Urea Nitrogen 13 mg/dL Normal 7-18 Creatinine For GFR 1.23 mg/dL Normal 0.70-1.30 Glomerular Filtration Rate > 60.0 Normal >56 1 Sodium Level 133 mEq/L Low 136-145 Potassium Serum 3.5 mEq/L Normal 3.5-5.1 Chloride Level 98 mEq/L Normal 98-107 Carbon Dioxide Level 27 mEq/L Normal 21-32 Anion Gap 8 mEq/L Normal 8-16 Calcium Level 9.0 mg/dL Normal 8.5-10.1 Ast/Sgot 23 U/L Normal 7-37 Alt/SGPT 44 U/L Normal 12-78 Alkaline Phosphatase 69 U/L Normal 45-117 Bilirubin,Total 1.4 mg/dL High 0.2-1.0 Total Protein 7.3 GM/DL Normal 6.4-8.2 Albumin 3.6 GM/DL Normal 3.2-5.2 Albumin/Globulin Ratio 1.0 Normal Hemoglobin A1c 02/03/[address] [address] [phone] Hemoglobin A1c 7.6 % Normal 2 Estimated Average Glucose 171 mg/dL High 60-110 Respiratory Panel 02/03/[address] [address] [phone] Respiratory Panel This respiratory <SEE NOTE> 3 Laboratory test finding 02/03/[address] [address] [phone] Urine Culture <pending> 1 Units are mL/min/1.73 m2 Chronic Kidney Disease Staging per NKF: Stage I & II GFR >=60 Normal to Mildly Decreased Stage III GFR 30-59 Moderately Decreased Stage IV GFR 15-29 Severely Decreased Stage V GFR <15 Very Little GFR Left ESRD GFR <15 on TIRE REBUILDER 2 REFERENCE RANGES: <=5.6% NORMAL 5.7-6.4% SUGGESTS IMPAIRED GLUCOSE META BOLISM/PREDIABETIC >= 6.5% ABNORMAL 3 This respiratory PCR panel d etects Influenza A H1, H3 and 2009 H1 viruses, Influenza B virus, Resp iratory Syncytial Virus, Human metapneumovirus, Parainfluenza virus 1, 2, 3 and 4, Adenovirus, Rhinovirus/Enterovirus, Coronavirus HKU1, NL63, OC43, 229E and SARS-CoV-2 (COVID 19), Bordetella pertussis, Bordetella parapertussis, Mycoplasma pneumoniae and Chlamydia pneumoniae. NEGATIVE by MULTIPLEXED NUCLEIC ACID PCR SARS-CoV-2 (COVID 19) NEGATIVE - SARS-CoV-2 (COVID19) Procedures Date Code Description Status 02/03/2021 98590 Office/Outpatient Established Mo d MDM 30-39 Min Completed Medical Devices Description No Information Available Encounters Type Date Location Provider Dx Diagnosis Office Visit 02/03/2021 8:40a Main Office Lavern Pitts NP J06. 9 Acute upper respiratory infection, unspecified R30.0 Dysuria R10.30 Lower abdominal pain, unspec ified Z20.828 Contact w and exposure to ot h viral communicable diseases R50.9 Fever, unspecified E11.65 Type 2 diabetes mellitus wit h hyperglycemia Assessments Date Code Description Provider 02/03/2021 J06.9 Acute upper respiratory infectio n, unspecified Lavern Pitts NP 02/03/2021 R30.0 Dysuria Lavern serrano NP 02/03/2021 R10.30 Lower abdominal pain, unspecifie d Lavern Pitts NP 02/03/2021 Z20.828 Contact with and (damico spected) exposure to other viral communicable diseases Lavern Pitts NP 02/03/2021 R50.9 Fever with chills Lavern dejesus NP 02/03/2021 E11.65 Type 2 diabetes mellitus with hy perglycemia Lavern Pitts NP Plan of Treatment No Information Available Functional Status Description No Information Available Mental Status Description No Information Available Referrals Description No Information Available
--- OUTSIDE RECORDS SUMMARY | 2021-02-04 13:33 | CCD | Continuity of Care Document ---
Author Author Manuelito PITTS Organization Unknown Address [address] [place] [address] Phone [phone] Care Team Providers Care Cross Roller Name Role Phone Becky Carlton MD AUTM [phone] David Toro MD AUTM [phone] [employer] AUTM [phone] Problems Description No Information Available Social History [...] H/L Range Note CBC With Differential 02/03/[address] [id number] [phone] White Blood Count 12.5 10 High 4.0-10.0 [...] 36.0-66.0 Lymph % 8.5 % Low 24.0-44.0 [place] % 5.3 % Normal 2.0-8.0 Eos % 0.0 % Normal 0.0-3.0 Baso % 0.3 % Normal 0.0-1.0 Immature Granulocyte % 1.0 % Normal 0-3.0 Nucleated Red Blood Cell % 0.0 % Normal 0-0 Neutrophils # 10.7 10 High 1.5-8.5 Lymph # 1.1 10 Low 1.5-5.0 [place] # 0.7 10 Normal 0.0-0.8 Eos # 0.0 10 Normal 0.0-0.5 Baso # 0.0 10 Normal 0.0-0.2 Comprehensive Metabolic Profil 02/03/[address] [address] [phone] Glucose, Fasting 187 mg/dL High 70-100 Blood [...] Albumin/Globulin Ratio 1.0 Normal Hemoglobin A1c 02/03/[address] [address] [phone] Hemoglobin A1c 7.6 % Normal 2 Estimated Average Glucose 171 mg/dL High 60-110 Respiratory Panel 02/03/[address] [address] [phone] Respiratory Panel This respiratory <SEE NOTE> 3 Laboratory test finding 02/03/[address] [address] [phone] Urine Culture <pending> 1 Units are mL/min/1.73 m2 Chronic Kidney Disease Staging per NKF: Stage I & II GFR >=60 Normal to Mildly Decreased Stage III GFR 30-59 Moderately Decreased Stage IV GFR 15-29 Severely Decreased Stage V GFR <15 Very Little GFR Left ESRD GFR <15 on CUSTOMS COMPLIANCE DIRECTOR 2 REFERENCE RANGES: <=5.6% NORMAL 5.7-6.4% SUGGESTS [...] (COVID19) Procedures Date Code Description Status 02/03/2021 [id number] Office/Outpatient Established Mo d MDM 30-39 Min [...]
[2021-02-04] MEDS ORDERED: ACETAMINOPHEN TAB 650MG DOSE (2X325MG) PO ONE (18:35)
--- NOTE | 2021-02-04 20:49 | REPVR ---
PROCEDURE INFORMATION: Exam: US Duplex Right Lower Extremity Veins, Limited Exam date and time: 02/04/2021 8:06 PM Age: 50 years old Clinical indication: Pain; Leg, lower; Right; Additional info: Pain swellin TECHNIQUE: Imaging protocol: Real-time Duplex ultrasound of the Right Lower Extremity with 2-D lucio scale, color Doppler flow and spectral waveform analysis with image documentation. Limited exam was focused on the right lower extremity veins. COMPARISON: US Duplex, Ext,LOWER veins,unilat 06/24/2014 11:10 PM FINDINGS: Right deep veins: Suboptimal visualization of the calf veins. The common femoral, femoral and popliteal veins are patent without thrombus. Normal Doppler waveforms. Normal compressibility and/or augmentation response. Right superficial veins: Unremarkable. Saphenofemoral junction is patent without thrombus. Soft tissues: Subcutaneous edema in the calf. IMPRESSION: No sonographic evidence of deep vein thrombosis. Electronically signed by: Jude Watts On 02/04/2021 20:49:17 PM
--- NOTE | 2021-02-04 20:53 | REPVR ---
PROCEDURE INFORMATION: Exam: XR Right Tibia and Fibula Exam date and time: 02/04/2021 8:20 PM Age: 50 years old Clinical indication: Swelling, leg or foot; Additional info: Right leg tenderness, history of reconstruction TECHNIQUE: Imaging protocol: XR Right tibia and fibula. Views: 2 views. COMPARISON: CR Ankle, complete 01/05/2020 9:48:02 AM FINDINGS: Bones/joints: Well-corticated ossicles along the undersurface of the distal fibula, suggestive of remote trauma. No radiographic evidence of acute fracture or dislocation. Alignment anatomic. Mild tricompartmental osteoarthrosis of the knee with associated chondrocalcinosis. Mild degenerative changes of the ankle and midfoot. Soft tissues: Diffuse soft tissue swelling. Enthesopathy at the quadriceps insertion and patellar tendon origin, as well as the Achilles tendon insertion. IMPRESSION: 1. Nonspecific soft tissue swelling. 2. Additional findings, as above. Electronically signed by: Jude Watts On 02/04/2021 20:53:38 PM
[2021-02-04] MEDS: HumaLOG INSULIN (NovoLOG) PER UNIT SC SCH (21:00)
[2021-02-04 21:05] LABS: BASO % 0.4 % (0.0-1.0); EOS # 0.1 10^3/uL (0.0-0.5); EOS % 0.7 % (0.0-3.0); HEMATOCRIT 48.8 % (42.0-52.0); HEMOGLOBIN 16.6 g/dl (13.5-17.5); LYMPH # 1.5 10^3/uL (1.5-5.0); LYMPH % 14.2 % (24.0-44.0); MEAN CORPUSCULAR HEMOGLOBIN 28.6 pg (27.0-33.0); MEAN CORPUSCULAR VOLUME 84.1 fl (80.0-96.0); MONO # 0.9 10^3/uL (0.0-0.8); MONO % 8.8 % (2.0-8.0); NEUTROPHILS # 8.1 10^3/uL (1.5-8.5); NEUTROPHILS % 75.2 % (36.0-66.0); PLATELET COUNT, AUTOMATED 169 10^3/uL (150-450); WHITE BLOOD COUNT 10.7 10^3/uL (4.0-10.0)
[2021-02-04 21:49] LABS: C REACTIVE PROTEIN QUANTITATIV 22.8 MG/DL (0.00-0.30); CALCIUM LEVEL 9.2 MG/DL (8.5-10.1); CREATININE FOR GFR 1.56 MG/DL (0.70-1.30); GLOMERULAR FILTRATION RATE 50.2 (>56); POTASSIUM SERUM 5.6 MEQ/L (3.5-5.1)
[2021-02-04] MEDS ORDERED: NS 1,000 ML IV ONE (22:00)
[2021-02-04] MEDS ORDERED: ASPI-161 PO (23:07)
[2021-02-04] MEDS ORDERED: AMLO1TAB25 PO (23:07)
[2021-02-04] MEDS ORDERED: NITR4TASL SL (23:07)
[2021-02-04] MEDS ORDERED: METF-838 PO (23:07)
[2021-02-04] MEDS ORDERED: SPIR50TA4 PO (23:07)
[2021-02-04] MEDS ORDERED: EPIP0.3I2 IM (23:07)
[2021-02-04] MEDS ORDERED: ONDA-195 PO (23:07)
[2021-02-04] MEDS ORDERED: HOME MED LIST COMPLETE! XX SCH (23:10)
[2021-02-04] MEDS ORDERED: MOM 30ML SUSPENSION UDC PO PRN (23:10)
[2021-02-04] MEDS ORDERED: ACETAMINOPHEN TAB 650MG DOSE (2X325MG) PO PRN (23:10)
[2021-02-04] MEDS ORDERED: VANCOMYCIN HCL 1,500 MG in D5W 250 ML IV SCH ×4 (23:10)
[2021-02-04 23:39] LABS: RSV AMPLIFICATION NEGATIVE (NEGATIVE)
[2021-02-04] MEDS ORDERED: DEXTROSE 50% 50 ML SYRINGE IV PRN (23:55)
[2021-02-04] MEDS ORDERED: GLUCOSE 4GM CHEW TABLET PO PRN (23:55)
[2021-02-04] MEDS ORDERED: GLUCAGON INJ 1MG VIAL SC PRN (23:55)
[2021-02-04] MEDS ORDERED: VANCOMYCIN HCL 1,000 MG, VIAL MATE ADAPTER 1 EACH in NS 250 ML IV ONE (23:59)
--- NOTE | 2021-02-05 | HPEPDOC ---
[facility] Medical History & Physical Date of Admission Feb 04, 2021 Date of Service: Feb 04, 2021 History and Physical CHIEF COMPLAINT: Right lower extremity redness HISTORY OF PRESENT ILLNESS: 50-year-old male history of dai-wxoolso-vzeeqqsuf diabetes, hypertension, hyperlipidemia who presented because of a one-day history of right lower extremity redness. Patient endorses that he woke up yesterday with a red right lower extremity which was tender when he was walking around on it. He noticed it was slightly more swollen than usual. He denies having similar episodes in the past. He does endorse that near the center of the redness he had a tick bite that he noticed last Monday very deep in his leg is unsure how long the son therefore he states he's had many tick bites before and he knows how to remove them and he believes he remove the entire body. Patient endorses a fever and chills since Monday he presented to an urgent care and they diagnosed him with UTI and prescribed Macrobid. He endorses that at that time he had no lower extremity complaints and no redness. He emphasized that the redness has only bee n present since yesterday. Patient will be admitted for management of resume cellulitis of the right lower extremity. PAST MEDICAL/SURGICAL HISTORY: Vtl-pehvqtk-pbogmlcft diabetes Hypertension Hyperlipidemia Multiple orthopedic surgeries of the right lower extremity which he cannot specify. Cervical disc surgery SOCIAL HISTORY: Endorses drinking alcohol socially only Denies tobacco use Denies illicit drug use FAMILY HISTORY: Reviewed and none contributory to this admission ALLERGIES: Please see below. REVIEW OF SYSTEMS: 10 point review of systems complete all negative otherwise stated in HPI HOME MEDICATIONS: Please see below. PHYSICAL EXAMINATION: Constitutional: Awake and alert, in no apparent distress, obese ENT: Sclera are clear. Mucosa is moist. Respiratory: Lungs CTA bilaterally. No respiratory distress. Cardiovascular: RRR S1 and S2 are normal Gastrointestinal: Abdomen is soft, non distended, non tender, BS present. Musculoskeletal: Right lower extremity slightly more swollen than the left lower extremity. Homans sign is negative. affected area circled by skin marker. Site of tick bit circled. The affected area affects mostly the anterior portion of the right lower extremity below the knee above the ankle skin is erythematous and weeping. Surprisingly not tender to palpation. sensation over the skin is intact. actually feels quite soft on palpation. Skin is a little warmer on the right lower extremity compared to left. Neurologic: No focal neurological deficit. Mental Status: A&O x3, normal affect Skin: Other than the skin findings of the right lower extremity as above no other obvious rashes were seen on the abdomen or back or left lower extremity or arms. LABORATORY DATA: See below. IMAGING: See chart MICROBIOLOGY: Please see below. ASSESSMENT/PLAN To 1-year-old male history of diabetes, hypertension, hyperlipidemia presents with right lower extremity redness suspected to have cellulitis and admitted for IV antibiotics # Presumed RLE cellulitis: Rapid progression over 24hr is a little strange to me. This still looks mostly likely to be cellulitis vs erysipelas. IV vancomycin (weeping on exam) and monitor closely for progression, Pain control. FU BCx. Fu LE duplex. Fu lyme screen, if worsens consider coverage with doxycycline and consulting ID. # DM: ISS. Frequent Accu-Cheks. Hypoglycemic precautions. # Hypertension: Continue home meds. Monitor and titrate # Hyperlipidemia: Continue statin A [facility] Hospitalist Vital Signs Vital Signs Date Time Temp Pulse Resp B/P (MAP) Pulse Ox O2 Delivery O2 Flow Rate FiO2 02/04/21 13:25 98.8 98 17 171/92 (118) 98 Room Air Laboratory Data Labs 24H Laboratory Tests 2 02/04/21 20:52: Immature Granulocyte % (Auto) 0.7, Neutrophils (%) (Auto) 75.2H, Lymphocytes (%) (Auto) 14.2L, Monocytes (%) (Auto) 8.8H, Eosinophils (%) (Auto) 0.7, Basophils (%) (Auto) 0.4, Neutrophils # (Auto) 8.1, Lymphocytes # (Auto) 1.5, Monocytes # (Auto) 0.9H, Eosinophils # (Auto) 0.1, Basophils # (Auto) 0.0, Nucleated Red Blood Cells % (auto) 0.0, Lactic Acid Level 1.2 02/04/21 20:53: Anion Gap 11, Glomerular Filtration Rate 50.2L, Calcium Level 9.2, C-Reactive Protein, Quantitative 22.80H 02/04/21 22:49: CBC/BMP Laboratory Tests 02/04/21 20:52 02/04/21 20:53 Microbiology Microbiology 02/04/21 Blood Culture, Received Pending 02/04/21 Blood Culture, Received Pending Home Medications Scheduled Amlodipine Besylate (Amlodipine Besylate) 10 Mg Tablet, 10 MG PO DAILY Aspirin (Aspirin EC) 81 Mg Tablet.dr, 81 MG PO DAILY Metformin HCl (Metformin HCl ER) 500 Mg Tab.er.24h, 500 MG PO BID Spironolactone (Spironolactone) 50 Mg Tablet, 50 MG PO DAILY Scheduled PRN Epinephrine (Epipen 2-Justin) 0.3 Mg/0.3 Ml Auto.injct, 0.3 MG IM ASDIRECTED PRN for ANAPHYLAXIS Nitroglycerin (Nitrostat) 0.4 Mg Tab.subl, 0.4 MG SL NITRO PRN for CHEST PAIN Ondansetron HCl (Ondansetron HCl) 4 Mg Tablet, 4 MG PO TID PRN for NAUSEA Allergies Coded Allergies: Penicillins (Verified Allergy, Severe, anaphylaxis, 10/22/18) bee venom protein (honey bee) (Verified Allergy, Severe, anaphylaxis, 10/22/18) NEEMA OROZCO MD Feb 05, 2021 00:00
[2021-02-05 00:20] VITALS: BP 150/83
[2021-02-05] MEDS ORDERED: MORPHINE 2 MG/ML 1ML VIAL (J2270) IV PRN (04:15)
[2021-02-05] MEDS: PERCOCET 5MG/325MG TAB PO PRN ×3 (04:24→20:33)
[2021-02-05] MEDS: VANCOMYCIN HCL 1,000 MG, VIAL MATE ADAPTER 1 EACH in NS 250 ML IV SCH ×3 (04:24→17:57)
[2021-02-05 06:00] VITALS: BP 179/85
[2021-02-05] MEDS: HEPARIN SOD (PORCINE) 5000UNITS/ML 1ML VIAL/SYRINGE SC SCH ×3 (06:04→20:32)
[2021-02-05 06:15] LABS: HEMATOCRIT 44.4 % (42.0-52.0); HEMOGLOBIN 15.1 g/dl (13.5-17.5); MEAN CORPUSCULAR HEMOGLOBIN 28.9 pg (27.0-33.0); MEAN CORPUSCULAR VOLUME 85.1 fl (80.0-96.0); PLATELET COUNT, AUTOMATED 156 10^3/uL (150-450); RED BLOOD COUNT 5.22 10^6/uL (4.30-6.10); WHITE BLOOD COUNT 8.8 10^3/uL (4.0-10.0)
[2021-02-05 06:40] LABS: ALBUMIN 2.8 GM/DL (3.2-5.2); ALT/SGPT 29 U/L (12-78); BILIRUBIN,TOTAL 0.8 MG/DL (0.2-1.0); BLOOD UREA NITROGEN 22 MG/DL (7-18); CALCIUM LEVEL 8.3 MG/DL (8.5-10.1); CARBON DIOXIDE LEVEL 25 MEQ/L (21-32); CHLORIDE LEVEL 100 MEQ/L (98-107); CREATININE FOR GFR 1.19 MG/DL (0.70-1.30); GLOMERULAR FILTRATION RATE > 60.0 (>56); GLUCOSE, FASTING 199 MG/DL (70-100); MAGNESIUM LEVEL 2.4 MG/DL (1.8-2.4); POTASSIUM SERUM 3.1 MEQ/L (3.5-5.1); SODIUM LEVEL 136 MEQ/L (136-145); TOTAL PROTEIN 6.1 GM/DL (6.4-8.2)
[2021-02-05] MEDS ORDERED: POTASSIUM CHLORIDE 10MEQ SR TABLET PO ONE (06:40)
[2021-02-05] MEDS: KCL 10MEQ/100ML SWI (KRUN) 10 MEQ in IV 1 EA IV SCH ×2 (06:57→08:00)
[2021-02-05] MEDS: SPIRONOLACTONE 50 MG TAB PO SCH (08:18)
[2021-02-05] MEDS: ASPIRIN 81MG ENTERIC TABLET PO SCH (08:19)
[2021-02-05] MEDS: HumaLOG INSULIN (NovoLOG) PER UNIT SC SCH ×4 (08:19→20:31)
[2021-02-05] MEDS: CARVedilol 6.25 MG TAB PO SCH ×2 (12:15→20:32)
[2021-02-05 14:00] VITALS: BP 150/83
--- NOTE | 2021-02-05 15:14 | IPNPDOC ---
Text Note Date of Service The patient was seen on 02/05/21. NOTE Subjective: Patient is a 50-year-old male with a PMHx of HTN, NIDDM2, DLP who presented to the ER with RLE redness, warmth and tenderness. Patient reported that on Monday he had a tick bite that he had removed. Patient has been experiencing worsening redness from Monday. Patient was admitted to the hospital service for further evaluation and treatment of right lower extremity cellulitis. Patient was seen and examined at the bedside. Currently patient reports that he feels better than he did when he came in. Denies any nausea, vomiting, chest pain, shortness breath, abdominal pain, diarrhea, or urinary discomfort. Reports that his right lower extremity appears relatively the same. Objective: Vitals (See below) General: Lying in bed, appears comfortable, AAOx3 HEENT: NC, AT CVS: +S1S2 Lungs: Fair air entry b/l, -w/r/r Abdomen: Soft, ND, NT, Obese Extremities: No LE edema, RLE with erythema / warmth / tenderness appear to be reduced from demarcation line / few area of drainage; Imaging: Vascular US 02/04: No sonographic evidence of deep vein thrombosis. XR Tib-Fib 02/04: 1. Nonspecific soft tissue swelling. 2. Additional findings, as above. Assessment and plan: RLE cellulitis - Clinically patient reports that he feels better - Right lower extremity with erythema, warmth and tenderness, appears to have pr ogressed from demarcation line; few areas of drainage - Leukocytosis/CRP have been improving - MRSA screen negative - Will check ASO / Wound culture - Blood cultures 02/04: Pending - Imaging noted above - c/w Oxycodone PRN for pain control - c/w Vancomycin (Day #2) Reported tick bike - Lyme serology pending Hypokalemia - Will supplement s/p MELLISA - Cr appears to have normalized HTN - BP elevated this morning - c/w Amlodipine / Spironolactone - Will add Carvedilol NIDDM2 - c/w ISS DLP - Currently not on any medications as an outpatient DVT prophylaxis - c/w Heparin Disposition: - Pending clinical improvement VS,Nila, I+O VS, Nila, I+O Laboratory Tests 02/04/21 20:52 02/04/21 20:53 02/05/21 00:57 02/05/21 05:28 Vital Signs Date Time Temp Pulse Resp B/P (MAP) Pulse Ox O2 Delivery O2 Flow Rate FiO2 02/05/21 14:00 97.8 89 12 150/83 (105) 89 Room Air I&O- Last 24 Hours up to 6 AM 02/05/21 05:59 Intake Total 1800 ml Balance 1800 ml JAYLIN BAXTER MD Feb 05, 2021 15:14
[2021-02-05] MEDS ORDERED: VANCOMYCIN HCL 750 MG, VIAL MATE ADAPTER 1 EACH in NS 250 ML IV ONE (19:00)
[2021-02-05 21:00] VITALS: BP 129/82
[2021-02-06] MEDS ORDERED: VANCOMYCIN HCL 750 MG, VIAL MATE ADAPTER 1 EACH in NS 250 ML IV SCH ×4 (01:00)
[2021-02-06 06:00] VITALS: BP 130/79
[2021-02-06] MEDS: HEPARIN SOD (PORCINE) 5000UNITS/ML 1ML VIAL/SYRINGE SC SCH ×3 (06:12→20:32)
[2021-02-06 07:03] LABS: BASO % 0.6 % (0.0-1.0); EOS # 0.2 10^3/uL (0.0-0.5); EOS % 2.3 % (0.0-3.0); HEMATOCRIT 42.9 % (42.0-52.0); HEMOGLOBIN 14.3 g/dl (13.5-17.5); LYMPH # 1.3 10^3/uL (1.5-5.0); LYMPH % 20.4 % (24.0-44.0); MEAN CORPUSCULAR HEMOGLOBIN 28.5 pg (27.0-33.0); MEAN CORPUSCULAR HGB CONC 33.3 g/dl (32.0-36.5); MEAN CORPUSCULAR VOLUME 85.5 fl (80.0-96.0); MONO # 0.6 10^3/uL (0.0-0.8); MONO % 8.4 % (2.0-8.0); NEUTROPHILS # 4.4 10^3/uL (1.5-8.5); NEUTROPHILS % 67.4 % (36.0-66.0); PLATELET COUNT, AUTOMATED 158 10^3/uL (150-450); RED BLOOD COUNT 5.02 10^6/uL (4.30-6.10); WHITE BLOOD COUNT 6.6 10^3/uL (4.0-10.0)
[2021-02-06 07:23] LABS: BLOOD UREA NITROGEN 17 MG/DL (7-18); CALCIUM LEVEL 8.4 MG/DL (8.5-10.1); CARBON DIOXIDE LEVEL 26 MEQ/L (21-32); CHLORIDE LEVEL 107 MEQ/L (98-107); CREATININE FOR GFR 0.92 MG/DL (0.70-1.30); GLOMERULAR FILTRATION RATE > 60.0 (>56); GLUCOSE, FASTING 184 MG/DL (70-100); MAGNESIUM LEVEL 2.1 MG/DL (1.8-2.4); POTASSIUM SERUM 3.6 MEQ/L (3.5-5.1); SODIUM LEVEL 138 MEQ/L (136-145)
[2021-02-06] MEDS: ASPIRIN 81MG ENTERIC TABLET PO SCH (08:06)
[2021-02-06] MEDS: CARVedilol 6.25 MG TAB PO SCH ×2 (08:09→20:31)
[2021-02-06] MEDS: HumaLOG INSULIN (NovoLOG) PER UNIT SC SCH ×4 (08:10→20:30)
[2021-02-06] MEDS: SPIRONOLACTONE 50 MG TAB PO SCH (08:11)
[2021-02-06] MEDS: DOXYCYCLINE HYCLATE 100MG TABLET PO SCH ×2 (09:01→20:30)
--- NOTE | 2021-02-06 12:59 | IPNPDOC ---
Text Note Date of Service The patient was seen on 02/06/21. NOTE Subjective: Patient is a 50-year-old male with a PMHx of HTN, NIDDM2, DLP who presented to the ER with RLE redness, warmth and tenderness. Patient reported that on Monday he had a tick bite that he had removed. Patient has been experiencing worsening redness from Monday. Patient was admitted to the hospital service for further evaluation and treatment of right lower extremity cellulitis. Patient was seen and examined at the bedside. Patient appears to be frustrated this morning about being a hospital. He denies any nausea, vomiting, abdominal pain, diarrhea, or urinary discomfort. Reports that his right leg still experiences pain. However, the redness, swelling and warmth has decreased. Objective: Vitals (See below) General: Sitting up in bed without any acute distress, oriented to person, place, time HEENT: Atraumatic and normocephalic CVS: +S1S2 Lungs: Fair air entry b/l, no wheezing, rales or rhonchi Abdomen: Soft, nondistended, nontender, morbid obesity Extremities: RLE with regression of erythema erythema / warmth / no significant drainage; tenderness persists Imaging: Vascular US 02/04: No sonographic evidence of deep vein thrombosis. XR Tib-Fib 02/04: 1. Nonspecific soft tissue swelling. 2. Additional findings, as above. Assessment and plan: RLE cellulitis - Patient reports that he feels better but is concerned that the redness has not resolved completely - Regression from demarcation lines noted on physical - s/p Leukocytosis / CRP continues to down trend - MRSA screen negative - ASO negative - Blood cultures 02/04: No growth at 24 hours - Imaging noted above - c/w Oxycodone PRN for pain control - Will start Doxycycline; Will c/w Vancomycin (Antibiotic day #3) Reported tick bike - Lyme serology pending s/p Hypokalemia s/p MELLISA - Cr appears to have normalized HTN - BP elevated this morning - c/w Amlodipine / Spironolactone / Carvedilol NIDDM2 - c/w ISS DLP - Currently not on any medications as an outpatient DVT prophylaxis - c/w Heparin Disposition: - Pending clinical improvement - Anticipate discharge home tomorrow VS,Nila, I+O VS, Fishbone, I+O Laboratory Tests 02/06/21 06:20 Vital Signs Date Time Temp Pulse Resp B/P (MAP) Pulse Ox O2 Delivery O2 Flow Rate FiO2 02/06/21 08:09 130/79 02/06/21 06:00 98.5 75 18 99 Room Air I&O- Last 24 Hours up to 6 AM 02/06/21 06:00 Intake Total 3155 ml Balance 3155 ml JAYLIN BAXTER MD Feb 06, 2021 12:59
[2021-02-06] MEDS: PERCOCET 5MG/325MG TAB PO PRN ×2 (13:58→20:31)
[2021-02-06 14:00] VITALS: BP 148/81
[2021-02-06 19:07] LABS: Lyme Disease IgG/IgM Antibodie <0.91 ISR (0.00-0.90); Lyme Disease IgM Ab Quantitati <0.80 index (0.00-0.79)
[2021-02-06] MEDS ORDERED: diphenhydrAMINE 25MG CAP PO PRN (20:55)
[2021-02-06 22:00] VITALS: BP 144/80
[2021-02-07] MEDS: HEPARIN SOD (PORCINE) 5000UNITS/ML 1ML VIAL/SYRINGE SC SCH (05:35)
[2021-02-07 06:00] VITALS: BP 145/80
[2021-02-07 07:57] LABS: BASO # 0.1 10^3/uL (0.0-0.2); BASO % 0.7 % (0.0-1.0); EOS # 0.2 10^3/uL (0.0-0.5); EOS % 3.1 % (0.0-3.0); HEMATOCRIT 43.6 % (42.0-52.0); HEMOGLOBIN 14.4 g/dl (13.5-17.5); LYMPH # 1.4 10^3/uL (1.5-5.0); LYMPH % 19.1 % (24.0-44.0); MEAN CORPUSCULAR HEMOGLOBIN 28.4 pg (27.0-33.0); MONO # 0.5 10^3/uL (0.0-0.8); MONO % 6.1 % (2.0-8.0); NEUTROPHILS # 5.1 10^3/uL (1.5-8.5); NEUTROPHILS % 69.1 % (36.0-66.0); PLATELET COUNT, AUTOMATED 174 10^3/uL (150-450); RED BLOOD COUNT 5.07 10^6/uL (4.30-6.10); WHITE BLOOD COUNT 7.4 10^3/uL (4.0-10.0)
[2021-02-07] MEDS: DOXYCYCLINE HYCLATE 100MG TABLET PO SCH (07:57)
[2021-02-07] MEDS: ASPIRIN 81MG ENTERIC TABLET PO SCH (07:57)
[2021-02-07 07:59] VITALS: BP 145/80
[2021-02-07] MEDS: SPIRONOLACTONE 50 MG TAB PO SCH (07:59)
[2021-02-07] MEDS: CARVedilol 6.25 MG TAB PO SCH (07:59)
[2021-02-07] MEDS: HumaLOG INSULIN (NovoLOG) PER UNIT SC SCH (08:00)
[2021-02-07 08:21] LABS: BLOOD UREA NITROGEN 15 MG/DL (7-18); C REACTIVE PROTEIN QUANTITATIV 6.31 MG/DL (0.00-0.30); CALCIUM LEVEL 8.5 MG/DL (8.5-10.1); CARBON DIOXIDE LEVEL 26 MEQ/L (21-32); CHLORIDE LEVEL 106 MEQ/L (98-107); CREATININE FOR GFR 0.96 MG/DL (0.70-1.30); GLOMERULAR FILTRATION RATE > 60.0 (>56); GLUCOSE, FASTING 195 MG/DL (70-100); MAGNESIUM LEVEL 1.8 MG/DL (1.8-2.4); SODIUM LEVEL 139 MEQ/L (136-145)
[2021-02-07] MEDS: PERCOCET 5MG/325MG TAB PO PRN (08:22)
[2021-02-07] MEDS ORDERED: DOXY100T PO (08:32)
[2021-02-07] MEDS ORDERED: PERCOCET PO (08:32)
[2021-02-07] MEDS ORDERED: CARV6.25 PO (08:32)
--- NOTE | 2021-02-07 15:53 | DS.PDOC ---
Discharge Summary General Date of Admission Feb 04, 2021 at 23:07 Date of Discharge 02/07/2021 Discharge Summary PROCEDURES PERFORMED DURING STAY: [None]. ADMITTING DIAGNOSES / DISCHARGE DIAGNOSES: RLE cellulitis Reported tick bike s/p Hypokalemia s/p MELLISA HTN NIDDM2 DLP DVT prophylaxis COMPLICATIONS/CHIEF COMPLAINT: Right leg pain / redness / warmth HISTORY OF PRESENT ILLNESS: Patient is a 50-year-old male with a PMHx of HTN, NIDDM2, DLP who presented to the ER with RLE redness, warmth and tenderness. Patient reported that on Monday he had a tick bite that he had removed. Patient has been experiencing worsening redness from Monday. Patient was admitted to the hospital service for further evaluation and treatment of right lower extremity cellulitis. Patient was seen and examined at the bedside. This morning patient reports that his right leg is doing significantly better. Reports that the redness, warmth and pain have subsided and that Percocet has been helpful. He denies any nausea, vomiting, diarrhea, abdominal discomfort, or urinary discomfort. HOSPITAL COURSE: RLE cellulitis - Patient reports that they feel better and he can ambulate with P adjusted dose of pain medications - Significant improvement of cellulitis noted - s/p Leukocytosis / CRP is continued to trend downward - MRSA screen negative - ASO negative - Blood cultures 02/04: No growth at 48 hours - Imaging noted above - c/w Oxycodone PRN for pain control - c/w Doxycycline; Will c/w Vancomycin (Antibiotic day #4); will complete course of antibiotics as an outpatient - Will have outpatient follow-up with primary care provider within the next 7 days Reported tick bike - Lyme serology negative - Will have outpatient follow-up with primary care provider s/p Hypokalemia s/p MELLISA - Cr appears to have normalized HTN - BP has been better controlled this morning - c/w Amlodipine / Spironolactone / Carvedilol NIDDM2 - c/w ISS DLP - Currently not on any medications as an outpatient DVT prophylaxis - c/w Heparin DISCHARGE MEDICATIONS: Please see below. ALLERGIES: Please see below. PHYSICAL EXAMINATION ON DISCHARGE: Vitals (See below) General: Patient is sitting up at that adjusted the bed, appears to be comfortable. He is not in any acute distress, is awake, alert and oriented 3 HEENT: Remains atraumatic and normocephalic CVS: +S1S2 Lungs: There appears to be fair air entry bilaterally without any auscultated evidence of crackles, wheezing or rhonchi Abdomen: Abdomen is soft, morbidly obese. No evidence of distention or tenderness Extremities: Left lower extremity without any significant edema; right lower extremity with improvement of erythema, warmth and tenderness and regression from demarcation lines LABORATORY DATA: Please see below. IMAGING: Vascular US 02/04: No sonographic evidence of deep vein thrombosis. XR Tib-Fib 02/04: 1. Nonspecific soft tissue swelling. 2. Additional findings, as above. ACTIVITY: [As tolerated]. DISCHARGE PLAN: Follow-up with primary care provider within the next 7 days Remain compliant with treatment plan and medications Return to the ER if you experience any problems DISPOSITION: Home Health Service. DISCHARGE CONDITION: [Stable]. TIME SPENT ON DISCHARGE: 35 minutes. Vital Signs/I&Os Vital Signs Date Time Temp Pulse Resp B/P (MAP) Pulse Ox O2 Delivery O2 Flow Rate FiO2 02/07/21 09:00 18 02/07/21 08:52 Room Air 02/07/21 07:59 60 145/80 02/07/21 06:00 98.3 96 I&O- Last 24 Hours up to 6 AM 02/07/21 06:00 Intake Total 1710 ml Output Total 0 ml Balance 1710 ml Laboratory Data Labs 24H Laboratory Tests 2 02/06/21 16:38: Bedside Glucose (Misc Panel) 210H 02/06/21 19:55: Bedside Glucose (Misc Panel) 228H 02/07/21 07:11: Bedside Glucose (Misc Panel) 214H 02/07/21 07:23: Immature Granulocyte % (Auto) 1.9, Neutrophils (%) (Auto) 69.1H, Lymphocytes (%) (Auto) 19.1L, Monocytes (%) (Auto) 6.1, Eosinophils (%) (Auto) 3.1H, Basophils (%) (Auto) 0.7, Neutrophils # (Auto) 5.1, Lymphocytes # (Auto) 1.4L, Monocytes # (Auto) 0.5, Eosinophils # (Auto) 0.2, Basophils # (Auto) 0.1, Nucleated Red Blood Cells % (auto) 0.0, Anion Gap 7L, Glomerular Filtration Rate > 60.0, Calcium Level 8.5, Magnesium Level 1.8, C-Reactive Protein, Quantitative 6.31H CBC/BMP Laboratory Tests 02/07/21 07:23 FSBS Laboratory Tests Test 02/06/21 16:38 02/06/21 19:55 02/07/21 07:11 Range/Units Bedside Glucose (Misc Panel) 210 228 214 70-105 MG/DL Microbiology Microbiology 02/04/21 Blood Culture - Preliminary, Resulted No Growth after 48 hours. All Specime... 02/04/21 Blood Culture - Preliminary, Resulted No Growth after 48 hours. All Specime... Discharge Medications Scheduled Amlodipine Besylate (Amlodipine Besylate) 10 Mg Tablet, 10 MG PO DAILY, (Reported) Aspirin (Aspirin EC) 81 Mg Tablet.dr, 81 MG PO DAILY, (Reported) Carvedilol (Carvedilol) 6.25 Mg Tablet, 6.25 MG PO BID Doxycycline Hyclate (Doxycycline Hyclate) 100 Mg Tablet, 100 MG PO BID Metformin HCl (Metformin HCl ER) 500 Mg Tab.er.24h, 500 MG PO BID, (Reported) Spironolactone (Spironolactone) 50 Mg Tablet, 50 MG PO DAILY, (Reported) Scheduled PRN Epinephrine (Epipen 2-Justin) 0.3 Mg/0.3 Ml Auto.injct, 0.3 MG IM ASDIRECTED PRN for ANAPHYLAXIS, (Reported) Nitroglycerin (Nitrostat) 0.4 Mg Tab.subl, 0.4 MG SL NITRO PRN for CHEST PAIN, (Reported) Ondansetron HCl (Ondansetron HCl) 4 Mg Tablet, 4 MG PO TID PRN for NAUSEA, (Reported) Oxycodone/Acetaminophen (Oxycodone-Acetaminophen 5-325) 1 Each Tablet, 2 TAB PO Q6HP PRN for MODERATE PAIN (PS 5-7) Allergies Coded Allergies: Penicillins (Verified Allergy, Severe, anaphylaxis, 10/22/18) bee venom protein (honey bee) (Verified Allergy, Severe, anaphylaxis, 10/22/18) JAYLIN BAXTER MD Feb 07, 2021 15:53
== END 2021-02-07 10:15 | disposition home health service (06) | DRG 603 ==
LOC: M ED 13:24 → M ED INP 23:07 → M MS5PR 02-05 00:22
PROVIDERS: ADMIT Family Medicine; ATTEND Internal Medicine
DX: L03.115 Cellulitis of right lower limb (principal); N17.9 Acute kidney failure, unspecified; E11.9 Type 2 diabetes mellitus without complications; I10 Essential (primary) hypertension; E87.6 Hypokalemia; E78.5 Hyperlipidemia, unspecified; Z79.84 Long term (current) use of oral hypoglycemic drugs; Z79.82 Long term (current) use of aspirin; Z79.899 Other long term (current) drug therapy; Z88.0 Allergy status to penicillin

== ENCOUNTER → 2021-04-29 | Outpatient (REF) | payer OTHER ==
[~2021-04-29] MED LIST changes: +ASPI-161 PO; +DOXY100T PO; +EPIP0.3I2 IM; +NITR4TASL SL; +ONDA-195 PO; +PERCOCET PO
== END ==
LOC: M LAB REF 15:47
PROVIDERS: ATTEND Physician Assistant
DX: R68.83 Chills (without fever) (principal)

== ENCOUNTER → 2021-10-08 | Outpatient (REF) | payer OTHER | LOC: M LAB REF 08:42 | PROVIDERS: ATTEND Registered Nurse | DX: R19.7 Diarrhea, unspecified (principal) ==

== ENCOUNTER → 2021-10-12 | Outpatient (CLI) | payer OTHER ==
[~2021-10-12] MED LIST changes: +GASTROGRAFIN SOLUTION 30ML (Q9963) As Ordered ONE; +ISOVUE-370 76% 100ML VIAL As Ordered ONE
== END ==
LOC: M RAD 15:20
PROVIDERS: ATTEND Registered Nurse
DX: K80.20 Calculus of gallbladder without cholecystitis without obstruction (principal); K57.90 Diverticulosis of intestine, part unspecified, without perforation or abscess without bleeding
CPT/HCPCS: 74178; Q9963; Q9967

== ENCOUNTER → 2021-10-14 | Outpatient (CLI) | payer OTHER ==
[~2021-10-14] MED LIST changes: -GASTROGRAFIN SOLUTION 30ML (Q9963) As Ordered ONE; -ISOVUE-370 76% 100ML VIAL As Ordered ONE
== END ==
LOC: M RAD 15:23
PROVIDERS: ATTEND Registered Nurse
DX: N50.812 Left testicular pain (principal)

== ENCOUNTER 2021-11-01 08:29 | Emergency (ER) | payer OTHER ==
[~2021-11-01] VITALS: Ht 185.4 cm; Wt 170.2 kg
[2021-11-01] MEDS ORDERED: TAMS1CAP17 (08:37)
[2021-11-01] MEDS ORDERED: CARV12.5 (08:37)
[2021-11-01] MEDS ORDERED: IBUPROFEN 800 MG TAB PO ONE (08:50)
[2021-11-01 10:26] VITALS: BP 157/81
== END 2021-11-01 10:49 | disposition home or self-care (01) ==
LOC: M ED 08:29
DX: S67.21XA Crushing injury of right hand, initial encounter (principal); W23.0XXA Caught, crushed, jammed, or pinched between moving objects, initial encounter; Y92.89 Other specified places as the place of occurrence of the external cause; Y99.0 Civilian activity done for income or pay; I10 Essential (primary) hypertension; E11.9 Type 2 diabetes mellitus without complications; I25.2 Old myocardial infarction; G47.33 Obstructive sleep apnea (adult) (pediatric); Z86.73 Personal history of transient ischemic attack (TIA), and cerebral infarction without residual deficits; Z87.820 Personal history of traumatic brain injury; Z88.0 Allergy status to penicillin; Z91.030 Bee allergy status; Z79.899 Other long term (current) drug therapy; Z79.82 Long term (current) use of aspirin; Z79.84 Long term (current) use of oral hypoglycemic drugs

== ENCOUNTER → 2021-11-18 | Outpatient (CLI) | payer OTHER ==
[~2021-11-18] MED LIST changes: +CARV12.5; +TAMS1CAP17
== END ==
LOC: M WUC 13:28
PROVIDERS: ATTEND Physician Assistant Medical
DX: M54.50 Low back pain, unspecified (principal); M25.78 Osteophyte, vertebrae

== ENCOUNTER → 2021-12-03 | Outpatient (CLI) | payer OTHER ==
[~2021-12-03] MED LIST changes: +ISOVUE-370 76% 25ML SYRINGE As Ordered ONE
== END ==
LOC: M RAD 13:59
PROVIDERS: ATTEND Physician Assistant Medical
DX: R22.1 Localized swelling, mass and lump, neck (principal)
CPT/HCPCS: 70491; Q9967

== ENCOUNTER 2022-07-18 20:58 | Emergency (ER) | payer OTHER ==
[~2022-07-18] VITALS: Ht 185.4 cm; Wt 167.2 kg
[~2022-07-18 20:58] MED LIST changes: -ISOVUE-370 76% 25ML SYRINGE As Ordered ONE
[2022-07-18] MEDS ORDERED: JARD1TAB3 (22:54)
[2022-07-18] MEDS ORDERED: TORS20TA2 PO (22:54)
[2022-07-18 23:15] LABS: BASO % 0.5 % (0.0-1.0); EOS # 0.2 10^3/uL (0.0-0.5); EOS % 2.4 % (0.0-3.0); HEMATOCRIT 48.6 % (42.0-52.0); HEMOGLOBIN 16.2 g/dl (13.5-17.5); LYMPH # 2.1 10^3/uL (1.5-5.0); LYMPH % 24.4 % (24.0-44.0); MEAN CORPUSCULAR HEMOGLOBIN 28.7 pg (27.0-33.0); MEAN CORPUSCULAR HGB CONC 33.3 g/dl (32.0-36.5); MEAN CORPUSCULAR VOLUME 86.2 fl (80.0-96.0); MONO # 0.7 10^3/uL (0.0-0.8); MONO % 7.5 % (2.0-8.0); NEUTROPHILS # 5.6 10^3/uL (1.5-8.5); NEUTROPHILS % 64.6 % (36.0-66.0); PLATELET COUNT, AUTOMATED 162 10^3/uL (150-450); RED BLOOD COUNT 5.64 10^6/uL (4.30-6.10); WHITE BLOOD COUNT 8.6 10^3/uL (4.0-10.0)
[2022-07-18] MEDS ORDERED: MORPHINE 4 MG/ML 1ML VIAL IV PRN (23:30)
[2022-07-18] MEDS ORDERED: ONDANSETRON 4MG 2ML VIAL IV ONE (23:30)
[2022-07-18] MEDS ORDERED: ASPIRIN 81MG CHEW TABLET PO ONE (23:30)
[2022-07-18 23:35] LABS: CK-MB VALUE MASS < 1.0 NG/ML (<3.6); LIPASE 45 U/L (12-53)
[2022-07-18 23:37] LABS: ALBUMIN 3.7 G/DL (3.2-5.2); ALKALINE PHOSPHATASE 70 U/L (46-116); ALT/SGPT 36 U/L (7.0-40); AST/SGOT < 8 U/L (<34); BILIRUBIN,DIRECT 0.1 MG/DL (<0.4); BILIRUBIN,TOTAL 0.5 MG/DL (0.3-1.2); BLOOD UREA NITROGEN 23 MG/DL (9-23); CALCIUM LEVEL 8.7 MG/DL (8.5-10.1); CARBON DIOXIDE LEVEL 26 MMOL/L (20-31); CHLORIDE LEVEL 104 MMOL/L (98-107); CREATININE FOR GFR 1.06 MG/DL (0.70-1.30); GLOMERULAR FILTRATION RATE > 60.0 (>56); GLUCOSE, FASTING 238 MG/DL (60-100); POTASSIUM SERUM 3.5 MMOL/L (3.5-5.1); SODIUM LEVEL 137 MMOL/L (136-145); TOTAL PROTEIN 6.4 G/DL (5.7-8.2)
[2022-07-18 23:38] LABS: CPK CREATINE PHOSPHOKINASE 130 U/L (46-171); MB/CK RELATIVE INDEX 0.76 (< OR =4)
[2022-07-18] MEDS ORDERED: ISOVUE-370 76% 100ML VIAL As Ordered ONE (23:54)
[2022-07-19 00:15] VITALS: BP 147/68
[2022-07-19 00:30] LABS: CK-MB VALUE MASS < 1.0 NG/ML (<3.6)
[2022-07-19 00:38] LABS: CPK CREATINE PHOSPHOKINASE 126 U/L (46-171); MB/CK RELATIVE INDEX 0.79 (< OR =4)
== END 2022-07-19 01:50 | disposition home or self-care (01) ==
LOC: M ED 20:58
DX: R07.89 Other chest pain (principal); E11.9 Type 2 diabetes mellitus without complications; I10 Essential (primary) hypertension; E78.5 Hyperlipidemia, unspecified; M54.12 Radiculopathy, cervical region; Z88.0 Allergy status to penicillin; Z91.030 Bee allergy status; Z79.82 Long term (current) use of aspirin; Z79.899 Other long term (current) drug therapy; Z79.84 Long term (current) use of oral hypoglycemic drugs
CPT/HCPCS: 70450; 71046; 71275; 74174; 80048; 80076; 82550; 82553; 83690; 83880; 84484; 85025; 93005; 96365; 96366; 96375; 99284; J2405; Q9967

== ENCOUNTER → 2022-10-07 | Outpatient (REF) | payer OTHER ==
[~2022-10-07] MED LIST changes: +JARD1TAB3; -ROSU20TA5 PO; +ROSU20TA61 PO; +TORS20TA2 PO
== END ==
LOC: M LAB REF 12:05
PROVIDERS: ATTEND Physician Assistant Medical
DX: F18.10 Inhalant abuse, uncomplicated (principal); F17.210 Nicotine dependence, cigarettes, uncomplicated

== ENCOUNTER → 2022-12-14 | Outpatient (CLI) | payer OTHER ==
[~2022-12-14] MED LIST changes: -GABA-283 PO; +GABA-284 PO
== END ==
LOC: M SLEEP 20:00
PROVIDERS: ATTEND Physician Assistant
DX: G47.33 Obstructive sleep apnea (adult) (pediatric) (principal)

== ENCOUNTER → 2023-03-20 | Outpatient (CLI) | payer OTHER | LOC: M SLEEP 20:00 | PROVIDERS: ATTEND Physician Assistant | DX: G47.33 Obstructive sleep apnea (adult) (pediatric) (principal) ==

== ENCOUNTER 2023-04-13 17:28 | Emergency (ER) | payer OTHER ==
[~2023-04-13] VITALS: Ht 185.4 cm; Wt 171.9 kg
[2023-04-13 20:59] VITALS: BP 179/90; TEMP 96.5; O2SAT 96
== END 2023-04-13 21:03 | disposition home or self-care (01) ==
LOC: M ED 17:28
DX: S63.502A Unspecified sprain of left wrist, initial encounter (principal); Y92.019 Unspecified place in single-family (private) house as the place of occurrence of the external cause; Y93.01 Activity, walking, marching and hiking; Y99.9 Unspecified external cause status; W01.0XXA Fall on same level from slipping, tripping and stumbling without subsequent striking against object, initial encounter; I10 Essential (primary) hypertension; E78.5 Hyperlipidemia, unspecified; E11.9 Type 2 diabetes mellitus without complications; F10.10 Alcohol abuse, uncomplicated; Z88.0 Allergy status to penicillin; Z91.030 Bee allergy status; Z79.899 Other long term (current) drug therapy; Z79.1 Long term (current) use of non-steroidal anti-inflammatories (NSAID)

== ENCOUNTER → 2023-07-15 | Outpatient (CLI) | payer OTHER ==
[~2023-07-15] MED LIST changes: -ASPI-161 PO; +ASPI-615 PO
== END ==
LOC: M LAB 06:30
PROVIDERS: ATTEND Physician Assistant Surgical
DX: K91.2 Postsurgical malabsorption, not elsewhere classified (principal); R19.7 Diarrhea, unspecified; E08.00 Diabetes mellitus due to underlying condition with hyperosmolarity without nonketotic hyperglycemic-hyperosmolar coma (NKHHC); Z98.84 Bariatric surgery status

== ENCOUNTER → 2023-08-08 | Outpatient (CLI) | payer OTHER ==
[2023-08-08 14:11] LABS: HEMATOCRIT 46.7 % (42.0-52.0)
[2023-08-08 14:14] LABS: BASO % 0.5 % (0.0-1.0); EOS # 0.2 10^3/uL (0.0-0.5); HEMATOCRIT 46.4 % (42.0-52.0); HEMOGLOBIN 15.7 g/dl (13.5-17.5); LYMPH # 1.9 10^3/uL (1.5-5.0); LYMPH % 31.7 % (24.0-44.0); MEAN CORPUSCULAR HEMOGLOBIN 28.6 pg (27.0-33.0); MEAN CORPUSCULAR HGB CONC 33.8 g/dl (32.0-36.5); MEAN CORPUSCULAR VOLUME 84.5 fl (80.0-96.0); MONO # 0.5 10^3/uL (0.0-0.8); MONO % 8.4 % (2.0-8.0); NEUTROPHILS # 3.4 10^3/uL (1.5-8.5); NEUTROPHILS % 56.2 % (36.0-66.0); PLATELET COUNT, AUTOMATED 147 10^3/uL (150-450); RED BLOOD COUNT 5.49 10^6/uL (4.30-6.10)
[2023-08-08 14:26] LABS: HEMOGLOBIN A1c 7.6 % (4.0-6.0)
[2023-08-08 14:42] LABS: ALBUMIN 4.3 G/DL (3.2-5.2); ALKALINE PHOSPHATASE 65 U/L (46-116); ALT/SGPT 64 U/L (7.0-40); AST/SGOT 42 U/L (<34); BILIRUBIN,TOTAL 1.4 MG/DL (0.3-1.2); BLOOD UREA NITROGEN 20 MG/DL (9-23); CALCIUM LEVEL 8.9 MG/DL (8.5-10.1); CARBON DIOXIDE LEVEL 28 MMOL/L (20-31); CHLORIDE LEVEL 102 MMOL/L (98-107); CREATININE FOR GFR 1.46 MG/DL (0.70-1.30); GLOMERULAR FILTRATION RATE 53.6 (>56); GLUCOSE, FASTING 129 MG/DL (60-100); IRON (FE) 80 UG/DL (65-175); MAGNESIUM LEVEL 1.8 MG/DL (1.8-2.4); PERCENT SATURATION 27.9 % (19.7-50.0); PHOSPHORUS LEVEL 2.6 MG/DL (2.5-4.9); POTASSIUM SERUM 3.4 MMOL/L (3.5-5.1); SODIUM LEVEL 140 MMOL/L (136-145); TOTAL IRON BINDING CAPACITY 287 UG/DL (250-425); TOTAL PROTEIN 6.7 G/DL (5.7-8.2)
[2023-08-08 14:47] LABS: FERRITIN 716.6 NG/ML (10.5-307.3); TOTAL 25(OH) VITAMIN D 34.9 NG/ML (20.0-100.0)
[2023-08-08 14:52] LABS: VITAMIN B12 LEVEL > 2000 PG/ML (211-911)
== END ==
LOC: M WUC 11:10
PROVIDERS: ATTEND Surgery
DX: K91.2 Postsurgical malabsorption, not elsewhere classified (principal); E55.9 Vitamin D deficiency, unspecified; Z98.84 Bariatric surgery status